=== PATIENT | female | born 1935 | race African-American/Black ===

== ENCOUNTER 2021-02-19 16:44 | Inpatient (IN) | payer MEDICARE, SELFPAY ==
[2021-02-19] VITALS (31 sets, daily range): BP systolic 119–174; BP diastolic 53–107; PULSE 77–97; RESP 13–30; TEMP 36.7–36.8; O2SAT 98–100; BMI 24.7
--- NOTE | ~2021-02-19 | CT_ITS ---
EXAMINATION: CT cervical spine wo con DATE: 02/19/2021 18:24 INDICATION: Head injury TECHNIQUE: Computed tomography (CT) of the cervical spine was performed without intravenous contrast. The dose-length product (DLP) was 193.13 mGy-cm. Automated exposure control and iterative reconstruc tion technique were employed. COMPARISON: None FINDINGS: There is no fracture, dislocation, or subluxation. The vertebral body heights are maintaine d. There is severe loss of intervertebral disc space height at C5-6 and moderate loss of intervertebr al disc space height at C4-5 and C6-7. The odontoid is intact. 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 There is enlargement of the right thyroid lobe which measures 5.0 x 4.1 cm. A 1.2 cm nodule is noted in the left thyroid lobe. IMPRESSION: 1. Severe cervical spondylosis without acute findings. 2. Enlarged right thyroid lobe. Recommend nonemergent thyroid ultrasound for risk stratification. Reviewed, dictated and finalized at location A. IMPRESSION: 1. Severe cervical spondylosis without acute findings. 2. Enlarged right thyroid lobe. Recommend nonemergent thyroid ultrasound for ri sk stratification.
--- NOTE | ~2021-02-19 | US_ITS ---
EXAMINATION: US thyroid EXAM DATE: 02/20/2021 15:28 INDICATION: thyroid enlargement. TECHNIQUE: Multiple grayscale and Doppler images of the thyroid were obtained (by a technologist who performed the scan) and subsequently reviewed. Individual nodules and recommendations may be reporte d in accordance with TI-RADS system as designated by the 2017 ACR White Paper TI-RADS committee. The re is no prior study for comparison. FINDINGS: Right thyroid lobe measures 4.3 x 5.5 x 4.2 cm, most of this volume taken up by a single nodule measu ring 4.9 x 3.8 x 3.9 cm which should be considered for ultrasound-guided FNA. Left thyroid lobe measu res 5.2 x 2.9 x 1.7 cm There are multiple other nodules bilaterally, largest on the left has multiple cystic regions and appearance most consistent with colloid cyst. IMPRESSION: 1. Multinodular goiter. 2. Recommend nonemergent biopsy of the 4.9 cm right thyroid lobe nodule. Reviewed, dictated and finalized at location A.
--- NOTE | ~2021-02-19 | XR_ITS ---
EXAMINATION: XR chest 1V portable INDICATION: Transient alteration of awareness TECHNIQUE: Portable AP chest at 1707 hours COMPARISON: 04/22/2016 FINDINGS: The lungs are free of acute opacities. There is no pleural effusion or pneumothorax. The ca rdiomediastinal silhouette is normal. IMPRESSION: 1. No acute cardiopulmonary abnormality. Reviewed, dictated and finalized at location A.
--- NOTE | ~2021-02-19 | CT_ITS ---
EXAMINATION: CT brain wo con INDICATION: Transient alteration of awareness COMPARISON: 01/04/2013 TECHNIQUE: Standard unenhanced head CT. The dose-length product (DLP) was 605.33 mGy-cm. The mA was a djusted according to patient size. Iterative reconstruction technique was employed. FINDINGS: There is no acute intraparenchymal hemorrhage. No evidence of mass lesion. No evidence of a cute infarction. There is mild periventricular and subcortical hypodensity probably related to small vessel ischemic disease. There is mild prominence of the sulci and ventricles related to cerebral atr ophy. Intracranial calcified cerebral atherosclerosis is noted. There are no extra-axial collections. There is no mass effect or midline shift. Changes in the globes are likely from ocular lens surgery. There is chronic opacification of the right mastoid air cells. IMPRESSION: 1. No acute intracranial abnormality. 2. Age related findings. Reviewed, dictated and finalized at location A.
--- NOTE | ~2021-02-19 | CT_ITS ---
EXAMINATION: CT brain wo con DATE: 02/22/2021 10:32 INDICATION: Leg weakness. TECHNIQUE: Computed tomography (CT) of the head was performed without intravenous contrast. The dose- length product was 605.33 mGy-cm. Automated exposure control and iterative reconstruction technique w ere employed. COMPARISON: CT dated 02/20/2020 FINDINGS: Generalized atrophy. There are scattered severe periventricular and subcortical white matte r changes, most likely related to small vessel ischemic disease (microangiopathy). No ventriculomegal y or midline shift. No acute intracranial hemorrhage, infarction, mass or mass effect. Basilar cister ns are patent. Paranasal sinuses and mastoids are pneumatized. No depressed skull fractures. IMPRESSION: 1. No acute intracranial abnormality. 2: Chronic age-related findings. Reviewed, dictated and finalized at location A.
--- NOTE | ~2021-02-19 | US_ITS ---
EXAMINATION: US abdomen limited DATE: 02/20/2021 15:28 INDICATION: Right upper quadrant pain TECHNIQUE: Multiple grayscale and Doppler ultrasound images of the abdomen were obtained. COMPARISON: None available FINDINGS: The head, body, and tail of the pancreas are normal. The liver is normal with normal echoge nicity and echotexture. No surface nodularity. Normal hepatopetal flow in the main portal vein. Stone s or sludge are present in the nondistended gallbladder. There is no gallbladder wall thickening or p ericholecystic fluid. The normal common bile duct measures 6 mm. There was no sonographic Silva sign . IMPRESSION: 1. Stones or sludge in the otherwise normal gallbladder. Reviewed, dictated and finalized at location A.
[2021-02-19 16:57] LABS: Glucose Point of Care 422 mg/dl (65-105)
[2021-02-19] MEDS: SODIUM CHLORIDE 0.9% IV 1,000 ML 999 ML IV CONT ×2 (17:03→18:39)
--- NOTE | 2021-02-19 17:14 | ED.GENADULT ---
HPI - General Adult General Chief complaint: Weakness Stated complaint: WEAKNESS Time Seen by Provider: 02/19/21 16:49 Source: RN notes reviewed History of Present Illness HPI narrative: Patient presents emergency department from home for weakness. The patient states that she lives at home by herself and she walks with both a cane and a walker she states that her daughter came over today and found the patient on the floor she states that she had fallen last night but unable to get herself at and laid on the floor all night patient states that she has been feeling more weak over the past day she denies any fevers or chills, chest pain shortness of breath abdominal pain nausea vomiting or any other symptoms denies any extremity pain or headache Related Data Home Medications Medication Instructions Recorded Confirmed Calcium-Vitamin D BID 02/19/21 02/19/21 amlodipine 02/19/21 atorvastatin 02/19/21 insulin detemir U-100 [Levemir 20 unit SUBCUT QAM 02/19/21 U-100 Insulin] lisinopril 02/19/21 timolol maleate drp DAILY 02/19/21 Allergies Allergy/AdvReac Type Severity Reaction Status Date / Time propoxyphene Allergy Mild Unknown Verified 02/19/21 17:03 Sulfa (Sulfonamide Allergy Mild VOMITING Verified 02/19/21 17:03 Antibiotics) Review of Systems Review of Systems: Gen.: Denies fevers or chills Eyes: Denies eye pain or visual change ENT: Denies congestion Respiratory: Denies shortness of breath or cough CV: Denies chest pain or palpitations GI: Denies abdominal pain nausea, emesis or diarrhea Musculoskeletal: Denies back pain or muscle pain Neuro: Reports weakness Skin: Denies rash Except as documented, all other systems reviewed and negative [facility] Past Medical History Medical History (Updated 02/19/21 @ 20:00 by Agustin Judge DO) Diabetes mellitus Family History Family History (Updated 12/19/15 @ 23:19 by DOCTOR UNKNOWN) Sibling Family history of diabetes mellitus in first degree relative Acute myocardial infarction Other Diabetes mellitus Family history of cardiovascular disease Hypertension Social History Social History Smoking status: Never smoker Alcohol intake: never Exam Narrative: APPEARANCE: No acute distress, nontoxic, resting in bed EYES: EOMI HEENT: Normocephalic, atraumatic, OMM RESPIRATORY: No respiratory distress Clear to auscultation bilaterally with no rhonchi wheezing or rales. CARDIOVASCULAR: Regular rate and rhythm without murmurs rubs or gallops. ABDOMINAL: Soft, nontender, nondistended, no rebound or guarding MUSCULOSKELETAl: Moves all extremities. No clubbing, cyanosis or edema. NEURO: Awake and alert x 4 Following commands, speech normal, no focal deficits SKIN:: Warm, dry. No rashes lesions or abrasions PSYCHIATRIC: Normal affect/mood, Course Course Emergency Course: Called discussed with Dr. De Los Santos presentation work-up agrees with admission at this time Discussed with patient and family results of workup and diagnosis. Discussed need for admission. Patient and family understand and agree to current treatment plan Vital Signs Vital signs: Vital Signs Temperature 98.2 F 02/19/21 16:55 Pulse Rate 93 02/19/21 16:55 Respiratory Rate 13 02/19/21 16:55 Blood Pressure 174/53 H 02/19/21 16:55 Pulse Oximetry 100 02/19/21 16:55 Temperature 98.2 F 02/19/21 16:55 Pulse Rate 93 02/19/21 20:01 Respiratory Rate 21 H 02/19/21 20:01 Blood Pressure 119/107 H 02/19/21 20:01 Pulse Oximetry 100 02/19/21 20:01 Medical Decision Making Vital Signs Vital Signs: Vital Signs Temperature 98.2 F 02/19/21 16:55 Pulse Rate 93 02/19/21 16:55 Respiratory Rate 13 02/19/21 16:55 Blood Pressure 174/53 H 02/19/21 16:55 Pulse Oximetry 100 02/19/21 16:55 Temperature 98.2 F 02/19/21 16:55 Pulse Rate 93 02/19/21 20:01 Respiratory Rate 21 H 02/19/21 20
[2021-02-19 17:37] LABS: Add Urine Microscopic? YES; Appearance Urine Cloudy (Clear); Bacteria Urine Trace /hpf; Bilirubin Urine Negative (Negative); Blood Urine 3+ (Negative); Color Urine Straw (Yellow); Glucose Urine UA 3+ mg/dL (Negative); Ketones Urine 1+ mg/dL (Negative); Leukocyte Esterase Ur 3+ LEU/UL (Negative); Mucus Urine Rare /lpf; Nitrate Urine Negative (Negative); Protein Urine 3+ mg/dL (Negative); Specific Grav Ur 1.022 (1.001-1.035); Squamous Epithelial Cell Urine Few /hpf (Few); Urobilinogen Urine Negative mg/dL (<2.0); WBC Urine >75 /hpf
--- NOTE | 2021-02-19 18:14 | PC.NURSE ---
pt off floor to CT scan
[2021-02-19 18:23] LABS: Basophils Percent Auto 0.2 % (0.2-1.2); Hematocrit 38.8 % (37.0-47.0); Immature Granulocyte Absolute 0.06 K/mm3 (0.00-0.031); Immature Granulocyte Percent A 0.4 % (0-0.5); Lymphocytes Absolute Auto 1.12 K/mm3 (0.9-3.2); Lymphocytes Percent Auto 7.9 % (18.3-44.2); Mean Corpuscular HGB Conc 30.9 g/dl (32-36); Mean Corpuscular Hemoglobin 26.8 pg (26-34); Mean Corpuscular Volume 86.8 fl (80-100); Mean Platelet Volume 10.8 fl (7.4-10.4); Neutrophils Absolute Auto 11.9 K/mm3 (1.3-6.7); Neutrophils Percent Auto 84.5 % (45.5-73.1); Platelet Count Result 276 k/mm3 (150-375); Red Blood Count 4.47 M/mm3 (4.2-5.4); Red Cell Distribution Width 14.5 % (11.5-14.5); White Blood Count 14.1 K/mm3 (4.5-10.0)
[2021-02-19 19:25] LABS: Alanine Aminotransferase 53 U/L (4-35); Albumin Level 3.8 g/dL (3.5-5.1); Alkaline Phosphatase 94 U/L (38-126); Anion Gap 13 mmol/L (8-16); Aspartate Amino Transferase 56 U/L (14-36); Bilirubin,Total 0.9 mg/dL (0.2-1.3); Blood Urea Nitrogen 20 mg/dL (7-17); Calcium 8.9 mg/dL (8.4-10.2); Carbon Dioxide 19 mmol/L (22-30); Chloride 106 mmol/L (98-107); Creatine Kinase 534 U/L (30-135); Estimated CRCL calculation 43 ml/min; Estimated Glomerular Filt Rate > 60; Glucose 406 mg/dL (65-110); Lipase 288 U/L (23-300); Potassium 3.6 mmol/L (3.4-5.0); Sodium 138 mmol/L (137-145)
[2021-02-19 19:27] LABS: INR 0.9; Prothrombin Time 12.5 Seconds (11.1-14.7)
[2021-02-19 19:28] LABS: Partial Thromboplastin Time 30.1 SECONDS (22.3-36.8)
[2021-02-19 19:40] LABS: Glucose Point of Care 364 mg/dl (65-105)
--- NOTE | 2021-02-19 20:17 | PM.IMHP ---
H&P: HPI History of Present Illness Date/Time: 02/19/21 20:17 Chief Complaint: Fall Narrative: This is an 85-year-old female with past medical history significant for hypertension, diabetes, glaucoma. Patient was brought today to the emergency room after she had been found down after she fell and was unable to get up on her own. Patient is unable to give much history she is slightly confused. Most of the history has been obtained from emergency room medical records and EMS records. Preliminary workup was significant for a urinalysis with significant wbc's present chemistry and complete blood come panel WBC of 14,000 and a creatinine kinase in the 500s. CT of the head with no acute intracranial abnormalities chest x-ray with no acute cardiopulmonary abnormality and a CT of cervical spine significant for severe cervical spondylosis. Decision has been made to admit the patient for further management evaluation and treatment. Review of Systems Review of Systems: ROS unobtainable: Yes unobtainable due to medical condition (Confused) [facility] Past Medical History Medical History (Updated 02/19/21 @ 20:00 by Agustin Judge DO) Diabetes mellitus Family History Family History (Updated 02/20/21 @ 00:17 by Juan Jose Trevino RN) Sibling Acute myocardial infarction Family history of diabetes mellitus in first degree relative Family history of cardiovascular disease Diabetes mellitus Hypertension Social History Social History Smoking status: Never smoker Alcohol intake: never Substance use: never Spiritual care concerns: No Meds Home Medications and Allergies Home Medications Medication Instructions Recorded Confirmed Type amlodipine 5 mg PO DAILY 02/19/21 02/20/21 History atorvastatin 10 mg PO DAILY 02/19/21 02/20/21 History insulin detemir U-100 [Levemir 20 unit SUBCUT QAM 02/19/21 02/20/21 History U-100 Insulin] lisinopril 40 mg PO DAILY 02/19/21 02/20/21 History timolol maleate 1 drp EACH EYE BID 02/19/21 02/20/21 History Allergies Allergy/AdvReac Type Severity Reaction Status Date / Time propoxyphene Allergy Mild Unknown Verified 02/19/21 17:03 Sulfa (Sulfonamide Allergy Mild VOMITING Verified 02/19/21 17:03 Antibiotics) Vital Signs Vital Signs - 24 hr 02/19/21 16:55 02/19/21 16:56 02/19/21 17:00 Temperature 98.2 F Pulse Rate 92 97 95 Respiratory Rate 18 15 17 Blood Pressure 174/53 H 174/53 H 155/59 H Pulse Oximetry 100 100 99 02/19/21 17:01 02/19/21 17:20 02/19/21 17:30 Temperature Pulse Rate 94 79 Respiratory Rate 22 H Blood Pressure Pulse Oximetry 99 02/19/21 18:00 02/19/21 18:25 02/19/21 18:42 Temperature Pulse Rate 83 88 81 Respiratory Rate 19 15 20 Blood Pressure Pulse Oximetry 100 100 02/19/21 18:45 02/19/21 19:00 02/19/21 19:15 Temperature Pulse Rate 82 94 86 Respiratory Rate 22 H 23 H 22 H Blood Pressure Pulse Oximetry 100 100 100 02/19/21 19:30 02/19/21 19:39 02/19/21 19:40 Temperature Pulse Rate 90 83 89 Respiratory Rate 24 H 18 24 H Blood Pressure 148/93 H Pulse Oximetry 100 100 100 02/19/21 19:45 02/19/21 19:46 02/19/21 20:00 Temperature Pulse Rate 88 84 82 Respiratory Rate 20 22 H 18 Blood Pressure 149/59 H Pulse Oximetry 100 100 100 02/19/21 20:01 Temperature Pulse Rate 93 Respiratory Rate 21 H Blood Pressure 119/107 H Pulse Oximetry 100 Exam Narrative: Laying in [facility] Const: General: cooperative, comfortable, no acute distress, well developed, alert and awake Nutritional Appearance: average body habitus Orientation/consciousness: oriented to person and confusion HENMT: Head: normal to inspection, normocephalic and atraumatic Ears: hearing grossly normal bilaterally Face and sinus: normal facial exam Eyes: General: appearance normal, both eyes and all related structures Alignment and Position: alignment normal
[2021-02-19 20:23] LABS: Glucose Point of Care 381 mg/dl (65-105)
[2021-02-19] MEDS: INSULIN ASPART (*BKC) 100 UNITS/ML 6 UNITS SUB-Q (20:27)
--- NOTE | 2021-02-19 20:39 | PC.NURSE ---
Called daughter Cherelle to report that patient will be admitted. Confirmed with Cherelle PMH and patient's medications
--- NOTE | 2021-02-19 20:45 | PC.NURSE ---
Called report to [facility]. Unable to accept patient until Lactic acid is draw. Phlebotomy called to draw lactic and blood cultures.
--- NOTE | 2021-02-19 20:59 | PC.NURSE ---
Phlebotomy at bedside drawing lactic and blood cultures
[2021-02-19 21:31] LABS: Lactic Acid Reflex 1.9 mmol/L (0.7-2.1)
--- NOTE | 2021-02-19 21:55 | PC.NURSE ---
Called rangel [facility], Lactic is 1.9. Floor accepting patient at this time
[2021-02-19 22:05] LABS: Glucose Point of Care 334 mg/dl (65-105)
--- NOTE | 2021-02-19 22:42 | ADMGEN ---
This patient, Blaze Douglas, was admitted to Medical Room 248-01. Patient/family oriented to hospital policies and general routines including ID bracelet, bed and alarms, visiting hours, pain management, procedures, bathroom and other care routines, personal items, smoking policy, room service/diet, and visiting hours. Information on how to activate the Rapid Response Team has been discussed. Patient/Family are encouraged to report perceived risks to care and to ask questions if they do not understand what they are told or what they should do.
[2021-02-19] MEDS: SODIUM CHLORIDE 0.9% IV 1,000 ML 80 ML IV CONT (23:54)
[2021-02-20 00:03] LABS: Glucose Point of Care 297 mg/dl (65-105)
[2021-02-20 04:48] LABS: Glucose Point of Care 321 mg/dl (65-105)
[2021-02-20 05:31] VITALS: BP 153/55; PULSE 87; RESP 16; TEMP 36.9; O2SAT 100
[2021-02-20 05:54] LABS: Basophils Percent Auto 0.2 % (0.2-1.2); Eosinophils Absolute Auto 0.2 K/mm3 (0-0.3); Eosinophils Percent Auto 1.9 % (0-4.4); Hematocrit 36.2 % (37.0-47.0); Hemoglobin 10.9 g/dL (12.0-15.0); Immature Granulocyte Absolute 0.07 K/mm3 (0.00-0.031); Immature Granulocyte Percent A 0.6 % (0-0.5); Lymphocytes Absolute Auto 1.84 K/mm3 (0.9-3.2); Lymphocytes Percent Auto 14.6 % (18.3-44.2); Mean Corpuscular HGB Conc 30.1 g/dl (32-36); Mean Corpuscular Hemoglobin 26.8 pg (26-34); Mean Corpuscular Volume 88.9 fl (80-100); Mean Platelet Volume 10.8 fl (7.4-10.4); Monocytes Absolute Auto 1.1 K/mm3 (0.1-0.6); Monocytes Percent Auto 8.7 % (2.6-8.5); Neutrophils Absolute Auto 9.3 K/mm3 (1.3-6.7); Platelet Count Result 251 k/mm3 (150-375); Red Blood Count 4.07 M/mm3 (4.2-5.4); Red Cell Distribution Width 14.6 % (11.5-14.5); White Blood Count 12.6 K/mm3 (4.5-10.0)
[2021-02-20 06:11] LABS: Alanine Aminotransferase 48 U/L (4-35); Albumin Level 3.6 g/dL (3.5-5.1); Alkaline Phosphatase 80 U/L (38-126); Anion Gap 15 mmol/L (8-16); Aspartate Amino Transferase 52 U/L (14-36); Bilirubin,Total 0.9 mg/dL (0.2-1.3); Blood Urea Nitrogen 23 mg/dL (7-17); Calcium 8.8 mg/dL (8.4-10.2); Carbon Dioxide 17 mmol/L (22-30); Chloride 108 mmol/L (98-107); Estimated CRCL calculation 37 ml/min; Estimated Glomerular Filt Rate > 60; Glucose 337 mg/dL (65-110); Potassium 4.1 mmol/L (3.4-5.0); Sodium 140 mmol/L (137-145)
[2021-02-20 07:03] LABS: Glucose Point of Care 321 mg/dl (65-105)
[2021-02-20] MEDS: amLODIPine BESYLATE 5 MG TABLET PO (08:20)
[2021-02-20] MEDS: lisinopriL 20 MG TABLET 40 MG PO (08:20)
[2021-02-20] MEDS: TIMOLOL MALEATE 0.5% OP SOLN 5 ML BOTTLE 1 DROP EACH EYE ×2 (08:20→17:31)
[2021-02-20] MEDS: INSULIN DETEMIR 100 UNITS/ML 20 UNITS SUB-Q (08:20)
[2021-02-20] MEDS: INSULIN ASPART (*BKC) 100 UNITS/ML SUB-Q ×3 (09:36→16:54)
--- NOTE | 2021-02-20 10:37 | PM.IMPN ---
Progress Note: A&P Assessment and Plan (1) Acute UTI: Code(s): N39.0 - Urinary tract infection, site not specified Status: Acute Assessment and Plan: UA suspicious for UTI and the patient does have complaints of frequency as well as leukocytosis -continue ceftriaxone and await cultures (2) Gait instability: Code(s): R26.81 - Unsteadiness on feet Status: Acute Assessment and Plan: She walks with a walker or cane as needed but fell due to not having either of the devices next to her bed -PT and OT ordered (3) Diabetes mellitus: Code(s): E11.9 - Type 2 diabetes mellitus without complications Status: Acute Assessment and Plan: Last glucose 321 -A1c 9.0 -she takes Levemir at home -will continue Levemir and add sliding scale insulin. -I see no home oral medications on her external med list. She would benefit from addition of oral medications at discharge to help control her blood glucose - I have called their PCP office and left a message with them to call me back about her DM tx plan (4) Fall: Code(s): W19.XXXA - Unspecified fall, initial encounter Status: Acute Assessment and Plan: As described above -cervical spine and CT of the brain without acute pathology -CK mildly elevated, will decrease fluids (5) Transaminitis: Code(s): R74.01 - Elevation of levels of liver transaminase levels Status: Acute Assessment and Plan: Mild, patient reports no history of alcohol abuse or liver disease -check hepatitis panel and liver ultrasound (6) Thyroid enlargement: Code(s): E04.9 - Nontoxic goiter, unspecified Status: Acute Assessment and Plan: Noted on cervical spine CT -will obtain thyroid ultrasound -check TSH Time Spent With Patient Time with patient: 25 - 35 minutes Subjective Date/time seen: 02/20/21 10:37 Interval history: Pt is a 85-year-old female here for UTI and fall. Patient was seen today and states she is doing well. She has some urinary frequency but no dysuria or abdominal pain. She states she remembers falling. She usually walks with a walker or cane but when she got out of bed the walker was not close to her bed so she tried to walk without a and she fell. She has no pain anywhere at this time. She denies chest pain, shortness of breath, fevers, chills, nausea or vomiting. She has no history of thyroid or liver abnormalities. Her last bowel movement was yesterday. Review of Systems Review of Systems: All systems reviewed & are unremarkable except as noted in HPI and below Exam Narrative: General: Well developed well nourished patient in NAD HEENT: normocephalic Neck: supple Neuro: Alert and oriented x4. Cranial nerves 2-12 intact. Equal strength the upper lower extremities 5/5 CV:RRR Resp: Slight Crackles to the bases bilaterally. No wheezing or rhonchi Abd: Soft, non distended. No pain to palpation. Positive bowel sounds Extremities: No swelling, erythema, or pain to palpation. Objective Data Vital Signs Vital Signs: Vital Signs - 24 hr 02/19/21 16:55 02/19/21 16:56 02/19/21 17:00 Temperature 98.2 F Pulse Rate 92 97 95 Respiratory Rate 18 15 17 Blood Pressure 174/53 H 174/53 H 155/59 H Pulse Oximetry 100 100 99 02/19/21 17:01 02/19/21 17:20 02/19/21 17:30 Temperature Pulse Rate 94 79 Respiratory Rate 22 H Blood Pressure Pulse Oximetry 99 02/19/21 18:00 02/19/21 18:25 02/19/21 18:42 Temperature Pulse Rate 83 88 81 Respiratory Rate 19 15 20 Blood Pressure Pulse Oximetry 100 100 02/19/21 18:45 02/19/21 19:00 02/19/21 19:15 Temperature Pulse Rate 82 94 86 Respiratory Rate 22 H 23 H 22 H Blood Pressure Pulse Oximetry 100 100 100 02/19/21 19:30 02/19/21 19:39 02/19/21 19:40 Temperature Pulse Rate 90 83 89 Respiratory Rate 24 H 18 24 H Blood Pressure 148/93 H Pulse Oximetry 100 100
[2021-02-20 11:59] LABS: Glucose Point of Care 315 mg/dl (65-105)
[2021-02-20] MEDS: SODIUM CHLORIDE 0.9% IV 1,000 ML 60 ML IV CONT (12:14)
[2021-02-20 14:00] VITALS: BP 169/50; PULSE 75; RESP 22; TEMP 37.1; O2SAT 99
[2021-02-20 16:54] LABS: Glucose Point of Care 319 mg/dl (65-105)
[2021-02-20 20:53] VITALS: BP 155/50; PULSE 69; RESP 18; TEMP 37.4; O2SAT 100
[2021-02-20 21:17] LABS: Glucose Point of Care 267 mg/dl (65-105)
[2021-02-20 22:00] VITALS: BP 166/49; PULSE 68; RESP 12; TEMP 36.7; O2SAT 100
[2021-02-21 05:35] LABS: Alanine Aminotransferase 76 U/L (4-35); Albumin Level 3.6 g/dL (3.5-5.1); Alkaline Phosphatase 82 U/L (38-126); Anion Gap 6 mmol/L (8-16); Aspartate Amino Transferase 84 U/L (14-36); Bilirubin,Total 0.7 mg/dL (0.2-1.3); Blood Urea Nitrogen 27 mg/dL (7-17); Calcium 8.6 mg/dL (8.4-10.2); Carbon Dioxide 24 mmol/L (22-30); Chloride 108 mmol/L (98-107); Creatine Kinase 611 U/L (30-135); Estimated CRCL calculation 48 ml/min; Estimated Glomerular Filt Rate > 60; Glucose 235 mg/dL (65-110); Hematocrit 34.1 % (37.0-47.0); Hemoglobin 10.6 g/dL (12.0-15.0); Mean Corpuscular HGB Conc 31.1 g/dl (32-36); Platelet Count Result 246 k/mm3 (150-375); Potassium 3.9 mmol/L (3.4-5.0); Red Blood Count 3.92 M/mm3 (4.2-5.4); Red Cell Distribution Width 14.7 % (11.5-14.5); Sodium 138 mmol/L (137-145); White Blood Count 11.2 K/mm3 (4.5-10.0)
[2021-02-21 05:49] VITALS: BP 162/56; PULSE 84; RESP 16; TEMP 36.8; O2SAT 99
[2021-02-21] MEDS: SODIUM CHLORIDE 0.9% IV 1,000 ML 60 ML IV CONT (06:19)
[2021-02-21 06:32] LABS: Thyroid Stimulating Hormone Reflex < 0.015 uIU/mL (0.465-4.68)
[2021-02-21 06:33] LABS: Hepatitis B Surface Antigen Negative (Negative)
[2021-02-21 06:39] LABS: HAV RESULT Negative (Negative); Hepatitis B Core IgM Result Negative (Negative)
[2021-02-21 06:51] LABS: Hepatitis C Virus Antibody Negative (Negative)
[2021-02-21 07:58] LABS: Glucose Point of Care 228 mg/dl (65-105)
[2021-02-21 08:07] LABS: Free T4 Free Thyroxine Reflex 3.62 ng/dL (0.78-2.19)
[2021-02-21] MEDS: INSULIN ASPART (*BKC) 100 UNITS/ML SUB-Q ×3 (08:15→16:35)
[2021-02-21] MEDS: INSULIN DETEMIR 100 UNITS/ML 20 UNITS SUB-Q (08:18)
[2021-02-21] MEDS: lisinopriL 20 MG TABLET 40 MG PO (08:27)
[2021-02-21] MEDS: amLODIPine BESYLATE 5 MG TABLET 10 MG PO (08:27)
[2021-02-21] MEDS: TIMOLOL MALEATE 0.5% OP SOLN 5 ML BOTTLE 1 DROP EACH EYE ×2 (08:27→16:37)
--- NOTE | 2021-02-21 10:17 | PM.IMPN ---
Progress Note: A&P Assessment and Plan (1) Acute UTI: Code(s): N39.0 - Urinary tract infection, site not specified Status: Acute Assessment and Plan: UA suspicious for UTI and the patient does have complaints of frequency as well as leukocytosis. Urine culture is growing multiple organisms but the UA does not show many squamous cells. For this reason I will continue antibiotics and I have asked lab to grow the culture. -continue ceftriaxone (2) Gait instability: Code(s): R26.81 - Unsteadiness on feet Status: Acute Assessment and Plan: She walks with a walker or cane as needed but fell due to not having either of the devices next to her bed -PT and OT ordered (3) Diabetes mellitus: Code(s): E11.9 - Type 2 diabetes mellitus without complications Status: Acute Assessment and Plan: Last glucose 228 -A1c 9.0 -she takes Levemir at home -will continue Levemir and add sliding scale insulin. -I see no home oral medications on her external med list. She would benefit from addition of oral medications at discharge to help control her blood glucose - I have called their PCP office and left a message 02/20 but did not receive a call back (4) Fall: Code(s): W19.XXXA - Unspecified fall, initial encounter Status: Acute Assessment and Plan: As described above -cervical spine and CT of the brain without acute pathology -no pain to her hips or extremities -CK increased a bit today, will increase fluids (5) Transaminitis: Code(s): R74.01 - Elevation of levels of liver transaminase levels Status: Acute Assessment and Plan: Mild, patient reports no history of alcohol abuse or liver disease -could be due to elevated CK -ultrasound without any acute abnormalities. No signs of choledocholithiasis on labs (6) 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 I spoke to the patient about this and she is going to follow up with her primary care physician (7) Hypertension: Code(s): I10 - Essential (primary) hypertension Status: Acute Assessment and Plan: Last blood pressure 162/56. Patient has been running high pretty consistently. -will increase Norvasc from 5 mg to 10 mg Subjective Date/time seen: 02/21/21 10:17 Interval history: Pt is a 85-year-old female here for UTI and fall. Patient was seen today and is doing well. She has no complaints. She is in absolutely no pain and denies chest pain, nausea, vomiting, fevers, chills, dysuria, abdominal pain, shortness of breath, or leg swelling. I spoke to her about her thyroid and liver ultrasounds. Exam Narrative: General: Well developed well nourished patient in NAD HEENT: normocephalic Neck: supple Neuro: Alert and oriented x4. Cranial nerves 2-12 intact. Equal strength the upper lower extremities 5/5 CV:RRR Resp: Slight Crackles to the bases bilaterally. No wheezing or rhonchi Abd: Soft, non distended. No pain to palpation. Positive bowel sounds Extremities: No swelling, erythema, or pain to palpation. Objective Data Vital Signs Vital Signs: Vital Signs - 24 hr 02/20/21 14:00 02/20/21 20:53 02/20/21 22:00 Temperature 98.7 F 99.4 F 98.1 F Pulse Rate 75 69 68 Respiratory Rate 22 H 18 12 Blood Pressure 169/50 H 155/50 H 166/49 H Pulse Oximetry 99 100 100 02/21/21 05:49 Temperature 98.3 F Pulse Rate 84 Respiratory Rate 16 Blood Pressure 162/56 H Pulse Oximetry 99 Intake/Output Intake/Output: Intake & Output 02/18/21 02/19/21 02/20/21 02/21/21 23:59 23:59 23:59 23:59 Intake Total 2049 1630 1000 Output Total 900 Balance 2049 730 1000 Meds/Results Medications: Active Medications Generic Name Dose Route Start Last Admin Trade Name Freq PRN Reason
[2021-02-21 12:04] LABS: Glucose Point of Care 294 mg/dl (65-105)
[2021-02-21 14:00] VITALS: BP 166/60; PULSE 98; RESP 16; TEMP 36.2; O2SAT 99
[2021-02-21 16:34] LABS: Glucose Point of Care 247 mg/dl (65-105)
[2021-02-21] MEDS: SODIUM CHLORIDE 0.9% IV 1,000 ML 80 ML IV CONT (20:17)
[2021-02-21 20:58] VITALS: BP 162/66; PULSE 86; RESP 18; TEMP 36.6; O2SAT 100
[2021-02-21 21:31] LABS: Glucose Point of Care 272 mg/dl (65-105)
[2021-02-22] VITALS (8 sets, daily range): BP systolic 146–172; BP diastolic 66–86; PULSE 69–100; RESP 16–20; TEMP 36.7–37.2; O2SAT 97–99
[2021-02-22 05:14] LABS: Hematocrit 34.9 % (37.0-47.0); Hemoglobin 11.2 g/dL (12.0-15.0); Mean Corpuscular HGB Conc 32.1 g/dl (32-36); Mean Corpuscular Hemoglobin 26.6 pg (26-34); Mean Corpuscular Volume 82.9 fl (80-100); Platelet Count Result 277 k/mm3 (150-375); Red Blood Count 4.21 M/mm3 (4.2-5.4); Red Cell Distribution Width 14.4 % (11.5-14.5); White Blood Count 10.3 K/mm3 (4.5-10.0)
[2021-02-22 05:34] LABS: Alanine Aminotransferase 65 U/L (4-35); Albumin Level 3.4 g/dL (3.5-5.1); Alkaline Phosphatase 101 U/L (38-126); Anion Gap 8 mmol/L (8-16); Aspartate Amino Transferase 56 U/L (14-36); Bilirubin,Total 0.7 mg/dL (0.2-1.3); Blood Urea Nitrogen 20 mg/dL (7-17); Calcium 8.5 mg/dL (8.4-10.2); Carbon Dioxide 24 mmol/L (22-30); Chloride 106 mmol/L (98-107); Creatine Kinase 349 U/L (30-135); Estimated CRCL calculation 48 ml/min; Estimated Glomerular Filt Rate > 60; Glucose 225 mg/dL (65-110); Potassium 3.6 mmol/L (3.4-5.0); Sodium 138 mmol/L (137-145)
--- NOTE | 2021-02-22 07:48 | ECG_ITS ---
Measurements Intervals [place] Rate: 101 P: [place]: 0 QRS: -32 QRSD: 113 T: 82 QT: 359 QTc: 466 Interpretive Statements ATRIAL FIBRILLATION WITH RAPID VENTRICULAR RESPONSE INCOMPLETE LEFT BUNDLE BRANCH BLOCK POOR R WAVE PROGRESSION, ANTERIOR LEADS INFERIOR INFARCT, AGE INDETERMINATE BORDERLINE ST-T WAVE ABNORMALITY- HIGH LATERAL LEADS ABNORMAL ECG Electronically Signed On 02-22-2021 9:05:52 CDT by Royer Stapleton D.O.
[2021-02-22] MEDS: SODIUM CHLORIDE 0.9% IV 1,000 ML 80 ML IV CONT (08:15)
[2021-02-22] MEDS: amLODIPine BESYLATE 5 MG TABLET 10 MG PO (08:16)
[2021-02-22] MEDS: TIMOLOL MALEATE 0.5% OP SOLN 5 ML BOTTLE 1 DROP EACH EYE ×2 (08:16→17:06)
[2021-02-22] MEDS: lisinopriL 20 MG TABLET 40 MG PO (08:16)
--- NOTE | 2021-02-22 08:18 | PM.IMPN ---
Progress Note: A&P Assessment and Plan (1) Acute UTI: Code(s): N39.0 - Urinary tract infection, site not specified Status: Acute Assessment and Plan: UA suspicious for UTI and the patient does have complaints of frequency as well as leukocytosis. Urine culture is growing multiple organisms but the UA does not show many squamous cells. For this reason I will continue antibiotics and I have asked lab to grow the culture. -continue ceftriaxone (2) Hyperthyroidism: Code(s): E05.90 - Thyrotoxicosis, unspecified without thyrotoxic crisis or storm Status: Acute Assessment and Plan: TSH noted to be low and T4 high -check T3 and thyrotropin receptor antibody -Start atenolol, check ekg -will likely need methimazole, thyroid uptake scan, and bx. -I have a call out to Dr. Field for recommendations (3) Gait instability: Code(s): R26.81 - Unsteadiness on feet Status: Acute Assessment and Plan: She was doing well with PT and OT but today she seems much weaker than yesterday and required 2 assistance to the bathroom and a sarasteady on the way back -continue PT/OT -check head CT (4) Diabetes mellitus: Code(s): E11.9 - Type 2 diabetes mellitus without complications Status: Acute Assessment and Plan: Last glucose 225 -A1c 9.0 -she takes Levemir at home -will continue Levemir and add sliding scale insulin. -I see no home oral medications on her external med list. She would benefit from addition of oral medications at discharge to help control her blood glucose - I have called their PCP office and left a message 02/20 but did not receive a call back (5) Fall: Code(s): W19.XXXA - Unspecified fall, initial encounter Status: Acute Assessment and Plan: As described above -cervical spine and CT of the brain without acute pathology -no pain to her hips or extremities -CK improving, stop IV fluids (6) Transaminitis: Code(s): R74.01 - Elevation of levels of liver transaminase levels Status: Acute Assessment and Plan: Mild, patient reports no history of alcohol abuse or liver disease -could be due to elevated CK -ultrasound without any acute abnormalities. 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 I spoke to the patient about this and she is going to follow up with her primary care physician (8) Hypertension: Code(s): I10 - Essential (primary) hypertension Status: Acute Assessment and Plan: Last blood pressure 160/86 Patient has been running high pretty consistently. -Norvasc increased from 5 mg to 10 mg -atenolol added Subjective Date/time seen: 02/22/21 08:18 Interval history: Pt is a 85-year-old female here for UTI, weakness and fall. Patient was seen today and not doing well. She says she feels much weaker today and does not feel like she is ready to go home. She has no pain at this time. She specifically denies chest pain, palpitations, shortness of breath, fevers, chills, nausea, vomiting, diarrhea, constipation or abdominal pain. She did say she had to go the bathroom and I walked her to the bathroom. During this time she looked much weaker than yesterday and needed much more assistance. While she was sitting on the toilet she kept leaning to the right. Exam Narrative: General: Well developed well nourished patient in NAD HEENT: normocephalic Neck: supple Neuro: Alert and oriented x4. Cranial nerves 2-12 intact. Equal strength the upper lower extremities 5/5. Leaning to the right while sitting. Gait normal CV: Appeared to be tachycardic on exam with slight irregularity. Check EKG Resp: Crackles to the bases, bilaterally. No wheezing or rhonchi Abd: So
[2021-02-22] MEDS: INSULIN DETEMIR 100 UNITS/ML 20 UNITS SUB-Q (08:22)
[2021-02-22 08:42] LABS: Glucose Point of Care 234 mg/dl (65-105)
[2021-02-22 08:52] LABS: Total Triiodothyronine (T3) 1.99 NG/ML (0.97-1.69)
[2021-02-22] MEDS: METOPROLOL TARTRATE 25 MG TABLET PO ×2 (09:26→21:50)
--- NOTE | 2021-02-22 10:18 | PCOTNOTE ---
Attempted to see patient at this time for skilled OT session. Patient being taken out of room for CT. Will attempt to see patient a second time. Will continue per POC.
[2021-02-22] MEDS: INSULIN ASPART (*BKC) 100 UNITS/ML SUB-Q (11:43)
[2021-02-22 12:04] LABS: Glucose Point of Care 299 mg/dl (65-105)
[2021-02-22] MEDS: ENOXAPARIN 60 MG/0.6 ML SYRINGE SUB-Q ×2 (13:02→21:52)
[2021-02-22 17:25] LABS: Glucose Point of Care 149 mg/dl (65-105)
[2021-02-22 22:07] LABS: Glucose Point of Care 207 mg/dl (65-105)
[2021-02-23] VITALS (11 sets, daily range): BP systolic 132–159; BP diastolic 53–87; PULSE 64–98; RESP 18; TEMP 36.6–36.8; O2SAT 94–100
--- NOTE | 2021-02-23 | ECHO_ITS ---
Patient Info Name: Blaze Douglas Age: 85 years : 1935 Gender: Female Ht: 62 in Wt: 135 lbs BSA: 1.65 m2 HR: 69 bpm BP: 159 / 87 mmHg Heart Rhythm: Atrial Fibrillation Technical Quality: Good Exam Date: 02/23/2021 10:54 AM Exam Location: [facility] Patient Status: Inpatient Admit Date: 02/23/2021 Staff Ordering Physician: Leny Galaviz PA-C Fur Repair Inspector: Lazara Patel RDCS Attending Provider: Leny Galaviz PA-C Referring Physician: Elena SOLORZANO Exam Type: CA echo doppler color flow Study Info Indications I48.1 - Persistent atrial fibrillation Complete two-dimensional, color flow and Doppler transthoracic echocardiogram is performed. Summary 1. Complete two-dimensional, color flow and Doppler transthoracic echocardiogram is performed. 2. Left ventricular chamber dimension is normal. 3. Left ventricular systolic function is normal, estimated at 60-65%. 4. There is mildly increased left ventricular wall thickness. 5. The left ventricular diastolic function is indeterminate. 6. Right ventricular chamber dimension is mildly enlarged. 7. Left atrial chamber dimension is mildly enlarged. 8. There is mild mitral valve regurgitation. 9. There is mild to moderate tricuspid valve regurgitation. 10. Moderate pulmonary hypertension, estimated pulmonary arterial systolic pressure is 48 mmHg. Left Ventricle Left ventricular chamber dimension is normal. Left ventricular systolic function is normal, estimated at 60-65%. There is mildly increased left ventricular wall thickness. The left ventricular diastolic function is indeterminate. Right Ventricle Right ventricular chamber dimension is mildly enlarged. Right ventricular systolic function is normal. Left Atria Left atrial chamber dimension is mildly enlarged. Right Atria Right atrial chamber dimension is normal. Atrial Septum Intact interatrial septum visualized by color flow imaging. Aortic Valve The aortic valve is trileaflet. There is mild aortic valve sclerosis. There is no aortic valve stenosis. There is trace aortic valve regurgitation. Pulmonic Valve The pulmonic valve is normal. There is no pulmonic valve stenosis. There is trace pulmonic regurgitation. Mitral Valve The mitral valve has thickened leaflets. There is no mitral valve stenosis. There is mild mitral valve regurgitation. Tricuspid Valve The tricuspid valve leaflets are normal. There is no significant tricuspid valve stenosis. There is mild to moderate tricuspid valve regurgitation. Moderate pulmonary hypertension, estimated pulmonary arterial systolic pressure is 48 mmHg. Pericardium/Pleural The pericardium appears normal. There is no pericardial effusion. Inferior Vena Cava Normal inferior vena cava with <50% collapse upon inspiration consistent with elevated right atrial pressure, 10 mmHg. Aorta The aortic root size at the sinus of Valsalva is normal. The prox ascending aorta size is normal. Left Ventricular Outflow Tract Name Value Normal LVOT 2D LVOT Diameter 1.8 cm LVOT Doppler LVOT Peak Gradient 5 m
[2021-02-23 06:42] LABS: Hematocrit 35.1 % (37.0-47.0); Hemoglobin 11.2 g/dL (12.0-15.0); Mean Corpuscular HGB Conc 31.9 g/dl (32-36); Mean Corpuscular Hemoglobin 26.7 pg (26-34); Mean Corpuscular Volume 83.8 fl (80-100); Mean Platelet Volume 11.3 fl (7.4-10.4); Platelet Count Result 266 k/mm3 (150-375); Red Blood Count 4.19 M/mm3 (4.2-5.4); Red Cell Distribution Width 14.3 % (11.5-14.5); White Blood Count 8.3 K/mm3 (4.5-10.0)
[2021-02-23 06:53] LABS: Alanine Aminotransferase 50 U/L (4-35); Alkaline Phosphatase 91 U/L (38-126); Anion Gap 4 mmol/L (8-16); Aspartate Amino Transferase 56 U/L (14-36); Bilirubin,Total 0.6 mg/dL (0.2-1.3); Blood Urea Nitrogen 21 mg/dL (7-17); Calcium 8.6 mg/dL (8.4-10.2); Carbon Dioxide 27 mmol/L (22-30); Chloride 103 mmol/L (98-107); Estimated CRCL calculation 48 ml/min; Estimated Glomerular Filt Rate > 60; Glucose 197 mg/dL (65-110); Potassium 3.3 mmol/L (3.4-5.0); Sodium 134 mmol/L (137-145)
[2021-02-23 07:25] LABS: Glucose Point of Care 185 mg/dl (65-105)
[2021-02-23] MEDS: TIMOLOL MALEATE 0.5% OP SOLN 5 ML BOTTLE 1 DROP EACH EYE ×2 (08:48→16:52)
[2021-02-23] MEDS: POTASSIUM CHLORIDE 20 MEQ TABLET 40 MEQ PO (08:48)
[2021-02-23] MEDS: METOPROLOL TARTRATE 25 MG TABLET PO ×2 (08:49→21:07)
[2021-02-23] MEDS: ENOXAPARIN 60 MG/0.6 ML SYRINGE SUB-Q (08:49)
[2021-02-23] MEDS: amLODIPine BESYLATE 5 MG TABLET 10 MG PO (08:49)
[2021-02-23] MEDS: lisinopriL 20 MG TABLET 40 MG PO (08:50)
[2021-02-23] MEDS: INSULIN DETEMIR 100 UNITS/ML 20 UNITS SUB-Q (08:50)
[2021-02-23] MEDS: methiMAzole 5 MG TAB PO (08:51)
[2021-02-23] MEDS: INSULIN ASPART (*BKC) 100 UNITS/ML SUB-Q (12:02)
[2021-02-23 12:23] LABS: Glucose Point of Care 220 mg/dl (65-105)
--- NOTE | 2021-02-23 14:05 | PM.IMPN ---
Progress Note: A&P Assessment and Plan (1) Acute UTI: Code(s): N39.0 - Urinary tract infection, site not specified Status: Acute Assessment and Plan: UA suspicious for UTI and the patient does have complaints of frequency as well as leukocytosis which is improving with antibiotics. Urine culture is growing multiple organisms but the UA does not show many squamous cells. For this reason I will continue antibiotics and I have asked lab to grow the culture. -continue ceftriaxone (2) Hyperthyroidism: Code(s): E05.90 - Thyrotoxicosis, unspecified without thyrotoxic crisis or storm Status: Acute Assessment and Plan: TSH noted to be low T4 and T3 high, consistent with hyperthyroidism - metoprolol and methimazole started. will need to monitor liver function test -will likely need thyroid uptake scan and bx. I spoke to the patient about this and she agrees (3) Gait instability: Code(s): R26.81 - Unsteadiness on feet Status: Acute Assessment and Plan: requiring assistance and continues to feel weak -continue PT/OT - care coordination getting authorization for SNF (4) Diabetes mellitus: Code(s): E11.9 - Type 2 diabetes mellitus without complications Status: Acute Assessment and Plan: Last -A1c 9.0 -she takes Levemir at home -will continue Levemir and add sliding scale insulin. -I see no home oral medications on her external med list. She would benefit from addition of oral medications at discharge to help control her blood glucose - I have called their PCP office and left a message 02/20 but did not receive a call back (5) Fall: Code(s): W19.XXXA - Unspecified fall, initial encounter Status: Acute Assessment and Plan: As described above -cervical spine and CT of the brain without acute pathology -no pain to her hips or extremities - check CK in the morning, this is trending down (6) Transaminitis: Code(s): R74.01 - Elevation of levels of liver transaminase levels Status: Acute Assessment and Plan: Mild, patient reports no history of alcohol abuse or liver disease -could be due to elevated CK -ultrasound without any acute abnormalities. 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 I spoke to the patient about this and she is going to follow up with her primary care physician (8) Hypertension: Code(s): I10 - Essential (primary) hypertension Status: Acute Assessment and Plan: Last blood pressure 159/87 -Norvasc increased from 5 mg to 10 mg and metoprolol added (9) New onset atrial fibrillation: Code(s): I48.91 - Unspecified atrial fibrillation Status: Acute Assessment and Plan: 02/22 patient was found to be in AFib RVR with no chest pain - metoprolol started, patient is now rate controlled - Lovenox will be transition to Xarelto. This will be 47 dollars a month and care coordination has spoken to the patient about this - echo done. Normal EF with mild to moderate tricuspid valve regurgitation -will need to follow up with cardiology outpt Subjective Date/time seen: 02/23/21 14:05 Interval history: Pt is a 85-year-old female here for UTI, weakness and fall. patient was seen today and states she feels better than yesterday but does not feel like she is at her baseline. She continues to be weak. she has no chest pain, shortness of breath, fevers, chills, nausea, vomiting, abdominal pain or leg swelling. I spoke with her about AFib, anticoagulation, and her thyroid abnormalities and answered all of her questions. Exam Narrative: General: Well developed well nourished patient i
[2021-02-23] MEDS: RIVAROXABAN 15 MG TABLET PO (16:52)
[2021-02-23 17:42] LABS: Glucose Point of Care 191 mg/dl (65-105)
[2021-02-23 21:22] LABS: Glucose Point of Care 257 mg/dl (65-105)
[2021-02-24] VITALS (11 sets, daily range): BP systolic 146–169; BP diastolic 50–75; PULSE 65–103; RESP 16–18; TEMP 36.7–36.9; O2SAT 98–100
[2021-02-24 06:19] LABS: Hematocrit 31.8 % (37.0-47.0); Hemoglobin 10.2 g/dL (12.0-15.0); Mean Corpuscular HGB Conc 32.1 g/dl (32-36); Mean Corpuscular Hemoglobin 26.5 pg (26-34); Mean Corpuscular Volume 82.6 fl (80-100); Mean Platelet Volume 11.2 fl (7.4-10.4); Platelet Count Result 271 k/mm3 (150-375); Red Blood Count 3.85 M/mm3 (4.2-5.4); Red Cell Distribution Width 13.9 % (11.5-14.5); White Blood Count 8.7 K/mm3 (4.5-10.0)
[2021-02-24 06:35] LABS: Alanine Aminotransferase 42 U/L (4-35); Albumin Level 2.9 g/dL (3.5-5.1); Alkaline Phosphatase 85 U/L (38-126); Anion Gap 3 mmol/L (8-16); Aspartate Amino Transferase 41 U/L (14-36); Bilirubin,Total 0.6 mg/dL (0.2-1.3); Blood Urea Nitrogen 19 mg/dL (7-17); Calcium 8.1 mg/dL (8.4-10.2); Carbon Dioxide 30 mmol/L (22-30); Chloride 102 mmol/L (98-107); Creatine Kinase 104 U/L (30-135); Estimated CRCL calculation 48 ml/min; Estimated Glomerular Filt Rate > 60; Glucose 122 mg/dL (65-110); Potassium 3.3 mmol/L (3.4-5.0); Sodium 135 mmol/L (137-145)
[2021-02-24 06:54] LABS: Glucose Point of Care 138 mg/dl (65-105)
[2021-02-24] MEDS: TIMOLOL MALEATE 0.5% OP SOLN 5 ML BOTTLE 1 DROP EACH EYE ×2 (08:28→16:59)
[2021-02-24] MEDS: methiMAzole 5 MG TAB PO (08:28)
[2021-02-24] MEDS: amLODIPine BESYLATE 5 MG TABLET 10 MG PO (08:28)
[2021-02-24] MEDS: lisinopriL 20 MG TABLET 40 MG PO (08:28)
[2021-02-24] MEDS: METOPROLOL TARTRATE 25 MG TABLET PO ×2 (08:29→20:45)
[2021-02-24] MEDS: INSULIN DETEMIR 100 UNITS/ML 20 UNITS SUB-Q (08:31)
--- NOTE | 2021-02-24 08:57 | PCPTNOTE ---
Attempted to see patient for PT at this time, however patient declined. Patient reported she ain't ready for therapy and she just got back in the bed with nursing. Will check back at a later time.
[2021-02-24] MEDS: SODIUM CHLORIDE 0.9% IV 500 ML 50 ML (10:32)
[2021-02-24] MEDS: INSULIN ASPART (*BKC) 100 UNITS/ML SUB-Q (11:46)
[2021-02-24 11:48] LABS: Glucose Point of Care 259 mg/dl (65-105)
[2021-02-24 16:30] LABS: Glucose Point of Care 139 mg/dl (65-105)
--- NOTE | 2021-02-24 16:33 | PM.IMPN ---
Progress Note: A&P Assessment and Plan (1) Acute UTI: Code(s): N39.0 - Urinary tract infection, site not specified Status: Acute Assessment and Plan: UA suspicious for UTI +frequency and leukocytosis, improving with antibiotics Urine culture-->Escherichia Coli Continue ceftriaxone (2) Hyperthyroidism: Code(s): E05.90 - Thyrotoxicosis, unspecified without thyrotoxic crisis or storm Status: Acute Assessment and Plan: TSH noted to be low T4 and T3 high, consistent with hyperthyroidism metoprolol and methimazole started will need to monitor liver function test will likely need thyroid uptake scan and bx (3) Gait instability: Code(s): R26.81 - Unsteadiness on feet Status: Acute Assessment and Plan: requiring assistance and continues to feel weak continue PT/OT care coordination getting authorization for SNF (4) Diabetes mellitus: Code(s): E11.9 - Type 2 diabetes mellitus without complications Status: Acute Assessment and Plan: A1c 9.0 continue Levemir and add sliding scale insulin. No home oral medications on her external med list. May benefit from addition of oral medications at discharge to help control her blood glucose Recommend follow up with PCP (5) Fall: Code(s): W19.XXXA - Unspecified fall, initial encounter Status: Acute Assessment and Plan: As described above cervical spine and CT of the brain without acute pathology CK wnl now (6) Transaminitis: Code(s): R74.01 - Elevation of levels of liver transaminase levels Status: Acute Assessment and Plan: Mild, patient reports no history of alcohol abuse or liver disease could be due to elevated CK ultrasound without any acute abnormalities No signs of choledocholithiasis on labs or exam monitor while on methimazole (7) 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 I spoke to the patient about this and she is going to follow up with her primary care physician (8) Hypertension: Code(s): I10 - Essential (primary) hypertension Status: Acute Assessment and Plan: Fluctuating Continue Norvasc at increased 10 mg Metoprolol added, continue Monitor (9) New onset atrial fibrillation: Code(s): I48.91 - Unspecified atrial fibrillation Status: Acute Assessment and Plan: 02/22 patient was found to be in AFib RVR with no chest pain Metoprolol started, patient is now rate controlled Lovenox will be transition to Xarelto. This will be 47 dollars a month and care coordination has spoken to the patient about this - echo done. Normal EF with mild to moderate tricuspid valve regurgitation -will need to follow up with cardiology o/p Subjective Date/time seen: 02/24/21 16:33 Interval history: pt seen and evaluated; labs, vs, and diagnostic reports reviewed; pt does not remember much about new dignosis and what is required at d/c; pt is still very weak Review of Systems Review of Systems: All systems reviewed & are unremarkable except as noted in HPI and below Exam Const: General: no acute distress, alert and awake Orientation/consciousness: patient oriented x3 HENMT: Head: normocephalic and atraumatic Ears: hearing grossly normal bilaterally and external ears normal Face and sinus: face symmetric Mouth: Yes Normal oral and palatal mucosa present Eyes: Pupils: Equal, round and reactive pupils present EOM: EOMs intact bilaterally Neck: Neck: full ROM, trachea midline and no JVD Thyroid: thyroid normal Resp: Effort & Inspection: normal respiratory effort Auscultation: clear to auscultation bilaterally Cardio: Jugular venous distension: no JVD Rhythm: abnormal rhythm Heart sounds: S1 normal heart sound present and S2 normal heart sound present GI: Inspection: normal to in
[2021-02-24] MEDS: RIVAROXABAN 15 MG TABLET PO (16:59)
[2021-02-24 21:12] LABS: Glucose Point of Care 128 mg/dl (65-105)
[2021-02-25] VITALS (9 sets, daily range): BP systolic 135–167; BP diastolic 46–78; PULSE 59–108; RESP 18–22; TEMP 36.3–36.8; O2SAT 98–100
[2021-02-25 05:50] LABS: Anion Gap 3 mmol/L (8-16); Blood Urea Nitrogen 17 mg/dL (7-17); Calcium 8.6 mg/dL (8.4-10.2); Carbon Dioxide 28 mmol/L (22-30); Chloride 103 mmol/L (98-107); Estimated CRCL calculation 56 ml/min; Estimated Glomerular Filt Rate > 60; Glucose 105 mg/dL (65-110); Potassium 3.7 mmol/L (3.4-5.0); Sodium 134 mmol/L (137-145)
[2021-02-25 08:03] LABS: Glucose Point of Care 123 mg/dl (65-105)
[2021-02-25] MEDS: amLODIPine BESYLATE 5 MG TABLET 10 MG PO (09:18)
[2021-02-25] MEDS: METOPROLOL TARTRATE 25 MG TABLET PO ×2 (09:18→20:12)
[2021-02-25] MEDS: INSULIN DETEMIR 100 UNITS/ML 20 UNITS SUB-Q (09:18)
[2021-02-25] MEDS: TIMOLOL MALEATE 0.5% OP SOLN 5 ML BOTTLE 1 DROP EACH EYE ×2 (09:19→17:03)
[2021-02-25] MEDS: methiMAzole 5 MG TAB PO (09:19)
[2021-02-25] MEDS: lisinopriL 20 MG TABLET 40 MG PO (09:19)
--- NOTE | 2021-02-25 11:38 | PCOTNOTE ---
Attempted to see Patient for A.M. treatment session at this time. Patient is having Physical Therapy at this time.
[2021-02-25 11:46] LABS: Glucose Point of Care 195 mg/dl (65-105)
--- NOTE | 2021-02-25 12:28 | PM.IMPN ---
Progress Note: A&P Assessment and Plan (1) Acute UTI: Code(s): N39.0 - Urinary tract infection, site not specified Status: Acute Assessment and Plan: UA suspicious for UTI +frequency and leukocytosis, improving with antibiotics Urine culture-->Escherichia Coli Continue ceftriaxone (2) Hyperthyroidism: Code(s): E05.90 - Thyrotoxicosis, unspecified without thyrotoxic crisis or storm Status: Acute Assessment and Plan: TSH noted to be low T4 and T3 high, consistent with hyperthyroidism metoprolol and methimazole started will need to monitor liver function test will likely need thyroid uptake scan and bx (3) Gait instability: Code(s): R26.81 - Unsteadiness on feet Status: Acute Assessment and Plan: requiring assistance and continues to feel weak continue PT/OT care coordination getting authorization for SNF (4) Diabetes mellitus: Code(s): E11.9 - Type 2 diabetes mellitus without complications Status: Acute Assessment and Plan: A1c 9.0 continue Levemir and add sliding scale insulin. No home oral medications on her external med list. May benefit from addition of oral medications at discharge to help control her blood glucose Recommend follow up with PCP (5) Fall: Code(s): W19.XXXA - Unspecified fall, initial encounter Status: Acute Assessment and Plan: As described above cervical spine and CT of the brain without acute pathology CK wnl now (6) Transaminitis: Code(s): R74.01 - Elevation of levels of liver transaminase levels Status: Acute Assessment and Plan: Mild, patient reports no history of alcohol abuse or liver disease could be due to elevated CK ultrasound without any acute abnormalities No signs of choledocholithiasis on labs or exam monitor while on methimazole (7) 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 I spoke to the patient about this and she is going to follow up with her primary care physician (8) Hypertension: Code(s): I10 - Essential (primary) hypertension Status: Acute Assessment and Plan: Fluctuating Continue Norvasc at increased 10 mg Metoprolol added, continue Monitor (9) New onset atrial fibrillation: Code(s): I48.91 - Unspecified atrial fibrillation Status: Acute Assessment and Plan: 02/22 patient was found to be in AFib RVR with no chest pain Metoprolol started, patient is now rate controlled Lovenox will be transition to Xarelto. This will be 47 dollars a month and care coordination has spoken to the patient about this - echo done. Normal EF with mild to moderate tricuspid valve regurgitation -will need to follow up with cardiology o/p Additional Plan Plan for d/c to swing bed tomorrow Subjective Date/time seen: 02/25/21 12:28 Interval history: 02/24 pt seen and evaluated; labs, vs, and diagnostic reports reviewed; pt does not remember much about new diagnosis and what is required at d/c; pt is still very weak 02/25 pt seen and evaluated; up to chair having lunch; denies any pain; looks better today, still weak Review of Systems Review of Systems: All systems reviewed & are unremarkable except as noted in HPI and below Exam Const: General: no acute distress, alert and awake Orientation/consciousness: patient oriented x3 HENMT: Head: normocephalic and atraumatic Ears: hearing grossly normal bilaterally and external ears normal Face and sinus: face symmetric Mouth: Yes Normal oral and palatal mucosa present Eyes: Pupils: Equal, round and reactive pupils present EOM: EOMs intact bilaterally Neck: Neck: full ROM, trachea midline and no JVD Resp: Effort & Inspection: normal respiratory effort Auscultation: clear to auscultation bilaterally Cardio: Jugular venous distension: no
[2021-02-25 16:29] LABS: Glucose Point of Care 189 mg/dl (65-105)
[2021-02-25] MEDS: RIVAROXABAN 15 MG TABLET PO (17:03)
[2021-02-25 21:06] LABS: Glucose Point of Care 253 mg/dl (65-105)
[2021-02-26] VITALS: PULSE 61
[2021-02-26 04:00] VITALS: PULSE 68
[2021-02-26 04:01] VITALS: BP 174/50; PULSE 70; RESP 22; TEMP 36.6; O2SAT 99
[2021-02-26 05:57] LABS: Alanine Aminotransferase 35 U/L (4-35); Alkaline Phosphatase 87 U/L (38-126); Anion Gap 4 mmol/L (8-16); Aspartate Amino Transferase 36 U/L (14-36); Bilirubin,Total 0.6 mg/dL (0.2-1.3); Blood Urea Nitrogen 19 mg/dL (7-17); Calcium 8.4 mg/dL (8.4-10.2); Carbon Dioxide 28 mmol/L (22-30); Chloride 102 mmol/L (98-107); Estimated CRCL calculation 48 ml/min; Estimated Glomerular Filt Rate > 60; Glucose 104 mg/dL (65-110); Potassium 3.8 mmol/L (3.4-5.0); Sodium 134 mmol/L (137-145)
[2021-02-26 07:48] LABS: Glucose Point of Care 130 mg/dl (65-105)
[2021-02-26 08:00] VITALS: PULSE 82
[2021-02-26] MEDS: lisinopriL 20 MG TABLET 40 MG PO (08:05)
[2021-02-26] MEDS: amLODIPine BESYLATE 5 MG TABLET 10 MG PO (08:06)
[2021-02-26] MEDS: methiMAzole 5 MG TAB PO (08:06)
[2021-02-26] MEDS: METOPROLOL TARTRATE 25 MG TABLET PO (08:06)
[2021-02-26] MEDS: TIMOLOL MALEATE 0.5% OP SOLN 5 ML BOTTLE 1 DROP EACH EYE ×2 (08:06→16:28)
[2021-02-26] MEDS: INSULIN DETEMIR 100 UNITS/ML 20 UNITS SUB-Q (08:06)
[2021-02-26 09:05] LABS: Thyrotropin Receptor Antibody <1.00 IU/L (<=2.00)
--- NOTE | 2021-02-26 09:24 | PM.DS ---
DS: Admitting Diagnosis Discharge Date 02/26/2021 Admitting Diagnosis Acute UTI DS: Summary Hospital Course Hospital Course: This is an 85-year-old female with past medical history significant for hypertension, diabetes, glaucoma. Patient was brought today to the emergency room after she had been found down after she fell and was unable to get up on her own. Patient is unable to give much history she is slightly confused. Most of the history has been obtained from emergency room medical records and EMS records. Preliminary workup was significant for a urinalysis with significant wbc's present chemistry and complete blood come panel WBC of 14,000 and a creatinine kinase in the 500s. CT of the head with no acute intracranial abnormalities chest x-ray with no acute cardiopulmonary abnormality and a CT of cervical spine significant for severe cervical spondylosis. Decision has been made to admit the patient for further management evaluation and treatment. She was treated empirically for UTI with IV Ceftriaxone. Urine culture grew Escherichia Coli; Coag negative Staphylococcus and Enterococcus species. She will complete 3 days of oral antibiotics. She was diagnosed with Hyperthyroidism and metoprolol and methimazole were initiated. She willl likely need thyroid uptake scan and biopsy outpatient. During her stay she has been weak with gait instability. She will discharge to inpatient rehab for therapy. She has been advised to follow up with her PCP within 2 weeks. Time Spent with Patient Time attestation: Total time spent providing and/or coordinating discharge services: Time spent: Greater than 30 minutes DS: Data Data Completed and Pending Labs on day of discharge: Labs from last 24 hours 02/26/21 02/26/21 02/25/21 07:45 05:05 20:15 Sodium 134 L Potassium 3.8 Chloride 102 Carbon Dioxide 28 Anion Gap 4 L BUN 19 H Creatinine 0.60 L Estim Creat Clear Calc 48 Estimated GFR > 60 Glucose 104 POC Capillary Glucose 130 H 253 H Calcium 8.4 Total Bilirubin 0.6 AST 36 ALT 35 Alkaline Phosphatase 87 Total Protein 6.0 L Albumin 3.0 L TSH Receptor Ab 02/25/21 02/25/21 02/22/21 16:19 11:35 08:57 Sodium Potassium Chloride Carbon Dioxide Anion Gap BUN Creatinine Estim Creat Clear Calc Estimated GFR Glucose POC Capillary Glucose 189 H 195 H Calcium Total Bilirubin AST ALT Alkaline Phosphatase Total Protein Albumin TSH Receptor Ab <1.00 Discharge Plan Discharge Attending physician on discharge: La Ugarte Consulting providers: Glenn Milton ; Timothy Skinner ; Jody Mccartney ; Damian Fournier ; Donaldo Acevedo ; Royer Stapleton Discharging Clinician: Naz Fong Patient Disposition: Inpatient Rehab Facility Activity: as tolerated Diet: heart healthy Discharge Instructions: AFib -will need to follow up with cardiology o/p Hyperthyroidism/Thyroid enlargement: -ultrasound of the thyroid recommended FNA Patient Instructions: Antibiotic Form, Rivaroxaban (By mouth), A-fib (Atrial Fibrillation) (DC), Urinary Tract Infection in Women (DC), Hyperthyroidism (DC), Graves Disease (DC) Stand Alone Forms: General Discharge Information Discharge Medications: New methimazole [Tapazole] 10 mg Tablet 5 mg PO QAM Qty: 30 RF: 0 metoprolol tartrate 25 mg Tablet 25 mg PO Q12HR Qty: 60 RF: 0 nitrofurantoin monohyd/m-cryst [Macrobid] 100 mg Capsule 100 mg PO Q12HR Qty: 6 RF: 0 Xarelto 15 mg Tablet 15 mg PO DAILY@1700 Qty: 30 RF: 0 Continued atorvastatin 10 mg tablet 40 mg PO DAILY RF: 0 amlodipine 5 mg tablet 5 mg PO DAILY RF: 0 timolol maleate 0.5 % drops 1 drp EACH EYE BID RF: 0 lisinopril 40 mg tablet 40 mg PO DAILY RF: 0 Levemir U-100 Insulin 100 unit/mL Solution 20 unit SUBCUT QAM RF: 0 Date of admission:
[2021-02-26 11:43] LABS: Glucose Point of Care 188 mg/dl (65-105)
[2021-02-26 12:00] VITALS: PULSE 60
[2021-02-26 14:06] VITALS: BP 150/52; PULSE 79; RESP 18; TEMP 36.7; O2SAT 100
[2021-02-26] MEDS: RIVAROXABAN 15 MG TABLET PO (16:28)
[2021-02-26 16:46] LABS: Glucose Point of Care 193 mg/dl (65-105)
== END 2021-02-26 18:20 | disposition swing bed (61) | DRG 690 ==
LOC: ANHED 20:00 → ANH2MED 20:06
PROVIDERS: Physician Assistant; Admitting Provider Internal Medicine; Emergency Provider Emergency Medicine; PCP Internal Medicine; Visit Provider Nurse Practitioner Adult Health
DX: N39.0 Urinary tract infection, site not specified (principal); B96.20 Unspecified Escherichia coli [E. coli] as the cause of diseases classified elsewhere; B95.7 Other staphylococcus as the cause of diseases classified elsewhere; B95.2 Enterococcus as the cause of diseases classified elsewhere; E05.90 Thyrotoxicosis, unspecified without thyrotoxic crisis or storm; Z28.21 Immunization not carried out because of patient refusal; I48.91 Unspecified atrial fibrillation; E11.65 Type 2 diabetes mellitus with hyperglycemia; I10 Essential (primary) hypertension; H40.9 Unspecified glaucoma; E87.6 Hypokalemia; R74.01 Elevation of levels of liver transaminase levels; M47.812 Spondylosis without myelopathy or radiculopathy, cervical region; R26.81 Unsteadiness on feet; W19.XXXA Unspecified fall, initial encounter; Z79.4 Long term (current) use of insulin; Z79.899 Other long term (current) drug therapy
CPT/HCPCS: 36415; 70450; 71045; 72125; 76536; 76705; 80048; 80053; 80074; 80076; 81001; 82550; 82948; 83036; 83519; 83605; 83690; 84439; 84443; 84480; 85025; 85027; 85610; 85730; 87040; 87077; 87086; 87088; 87186; 93005; 93306; 96361; 96365; 96366; 96372; 97110; 97161; 97165; 97530; 97535; 99285; A9270; G0378; J0696; J1650; J1815; J3480; J7030; J7040

== ENCOUNTER 2021-02-26 18:52 | Inpatient (IN) | payer MEDICARE, SELFPAY ==
[2021-02-26 19:30] VITALS: O2SAT 97
[2021-02-26 20:09] VITALS: BMI 24.7
--- NOTE | 2021-02-26 20:11 | PC.NURSE ---
Marvel admitted to room 4 per w/c from [facility]. Denies pain, is alert adn oriented, denies medical histyory, oriented to room and call light.
[2021-02-26 20:29] LABS: Glucose Point of Care 246 mg/dl (65-105)
[2021-02-26 21:17] VITALS: PULSE 66
[2021-02-26] MEDS: NITROFURANTOIN MONOHYD MACROCR 100 MG CAP PO (21:17)
[2021-02-26] MEDS: METOPROLOL TARTRATE 25 MG TABLET PO (21:17)
[2021-02-27] VITALS: BP 166/59; PULSE 62; RESP 20; TEMP 36; O2SAT 100
--- NOTE | 2021-02-27 06:39 | WPDREHABHP2 ---
HPI Date/Time 02/27/21 06:39 Narrative The patient's primary rehab impairment category is [] The etiologic diagnosis is [ Weakness with gait instability history of UTI treated [facility] was given ceftriaxone currently on some nitrofurantoin. Patient had history of atrial fibrillation with RVR is currently on Xarelto rate is controlled, with history of diabetes on Levemir and hyperthyroidism requiring the thigh muscle.] I saw this patient [id number] on [] The patient is a [ 85-year-old female with history of weakness gait instability treated for UTI at [facility]] Therapy was initiated at the acute care facility and the patient transferred to us from [[facility]] on [] PRIOR LEVEL OF FUNCTION: [] CURRENT LEVEL OF FUNCTION: [] GOALS: Our therapists will evaluate the patient and establish the goals. However, upon pre-admission screening, the expected goals were to be [INDEPENDENT] with self-care, [INDEPENDENT] with transfers, and [INDEPENDENT] with functional mobility so that the patient can return home. ESTIMATED LENGTH OF STAY: [10-14 days] POTENTIAL BARRIERS TO DISCHARGE: [Patient lives alone.] [Family needs training.] [Severity of condition.] [Architectural barriers.] ACTIVE CO-MORBIDITIES PRESENT ON ADMISSION: Active co-morbidities include []. The above co-morbidities impact the patient's function and/or functional outcome by [] Covid The patient had a negative COVID test on []. Review of Systems Review of Systems All systems reviewed & are unremarkable except as noted in HPI and below PMFSH Past Medical History Medical History Diabetes mellitus Hypertension Family History Family History Sibling Acute myocardial infarction Family history of diabetes mellitus in first degree relative Family history of cardiovascular disease Diabetes mellitus Hypertension Social History Social History Smoking status: Never smoker Second hand tobacco smoke exposure: No Alcohol intake: never Substance use: never Spiritual care concerns: No Meds Home Medications and Allergies Home Medications Medication Instructions Recorded Confirmed Type Levemir U-100 Insulin 20 unit SUBCUT QAM 02/19/21 02/26/21 History amlodipine 5 mg PO DAILY 02/19/21 02/26/21 History atorvastatin 40 mg PO DAILY 02/19/21 02/26/21 History lisinopril 40 mg PO DAILY 02/19/21 02/26/21 History timolol maleate 1 drp EACH EYE BID 02/19/21 02/26/21 History methimazole [Tapazole] 5 mg PO QAM #30 tablet 02/26/21 02/26/21 Rx metoprolol tartrate 25 mg PO Q12HR #60 tablet 02/26/21 02/26/21 Rx nitrofurantoin monohyd/m-cryst 100 mg PO Q12HR #6 cap 02/26/21 02/26/21 Rx [Macrobid] rivaroxaban [Xarelto] 15 mg PO DAILY@1700 #30 tablet 02/26/21 02/26/21 Rx Allergies Allergy/AdvReac Type Severity Reaction Status Date / Time propoxyphene Allergy Mild Unknown Verified 02/20/21 06:00 Sulfa (Sulfonamide AdvReac Mild VOMITING Verified 02/24/21 08:44 Antibiotics) Vital Signs Vital Signs - 24 hr 02/26/21 21:17 02/27/21 00:00 Temperature 36.0 C L Pulse Rate 66 62 Respiratory Rate 20 Blood Pressure 166/59 H Pulse Oximetry 100 Exam Const General: comfortable and no acute distress Eyes General: appearance normal, both eyes and all related structures Neck Neck: no JVD Cardio Rate: regular rate Rhythm: abnormal rhythm GI GI Palp: Yes Soft to palpation External Female Exam: normal external appearance Skin General skin exam: normal color and no rashes or lesions noted Neuro Speech: normal speech Extrem General: normal to inspection and normal exam except as noted Psych Mental Status: mental status grossly normal Rehab Assessment and Plan Additional Plan patient with a history of a UTI treated with ceftriaxo
--- NOTE | 2021-02-27 07:11 | P.PN_ITS ---
Progress Note: A&P Assessment and Plan (1) New onset atrial fibrillation: Code(s): I48.91 - Unspecified atrial fibrillation <Nikki JjFREDERIC Haynes - Last Filed: 02/27/21 07:28> Status: Acute <Trevinphuc Tio FREDERIC Douglas - Last Filed: 02/27/21 07:28> Assessment and Plan: * Controlled * Believed to be secondary to hyperthyroidism * Continue metoprolol 25 mg every 12 hours and Xarelto <FREDERIC Farfan - Last Filed: 02/27/21 07:28> (2) Hyperthyroidism: Code(s): E05.90 - Thyrotoxicosis, unspecified without thyrotoxic crisis or storm <FREDERIC Farfan - Last Filed: 02/27/21 07:28> Status: Acute <Nikki JjFREDERIC Haynes - Last Filed: 02/27/21 07:28> Assessment and Plan: * Thyroid test consistent with hyperthyroidism * Continue tapazole * Previous provider spoke with patient ultrasound of the thyroid recommended FNA. she is going to follow up with her primary care physician <FREDERIC Farfan - Last Filed: 02/27/21 07:28> (3) Hypertension: Code(s): I10 - Essential (primary) hypertension <FREDERIC Farfan - Last Filed: 02/27/21 07:28> Status: Acute <FREDERIC Farfan - Last Filed: 02/27/21 07:28> Assessment and Plan: * Blood pressure stable * Continue amlodipine 5 mg daily and lisinopril 40 mg daily <FREDERIC Farfan - Last Filed: 02/27/21 07:28> (4) Fall: Code(s): W19.XXXA - Unspecified fall, initial encounter <FREDERIC Farfan - Last Filed: 02/27/21 07:28> Status: Acute <FREDERIC Farfan - Last Filed: 02/27/21 07:28> Assessment and Plan: * Continue PT OT <FREDERIC Farfan - Last Filed: 02/27/21 07:28> (5) Acute UTI: Code(s): N39.0 - Urinary tract infection, site not specified <CEDRIC FarfanP-C - Last Filed: 02/27/21 07:28> Status: Acute <CEDRIC FarfanP-C - Last Filed: 02/27/21 07:28> Assessment and Plan: * Blood culture with the growth of E. coli * Continue Macrobid <KISHAN Farfan-C - Last Filed: 02/27/21 07:28> (6) Gait instability: Code(s): R26.81 - Unsteadiness on feet <Nikki Douglas MARKETING PROJECT LEAD-C - Last Filed: 02/27/21 07:28> Status: Acute <KISHAN Farfan-C - Last Filed: 02/27/21 07:28> Assessment and Plan: * Continue PT OT <KISHAN Farfan-C - Last Filed: 02/27/21 07:28> (7) Diabetes mellitus: Code(s): E11.9 - Type 2 diabetes mellitus without complications <CEDRIC FarfanP-C - Last Filed: 02/27/21 07:28> Status: Acute <KISHAN Farfan-C - Last Filed: 02/27/21 07:28> Assessment and Plan: * Last A1c 9 * Patient will follow up with her primary care physician to discuss use of oral medication * Continue home medication along with sliding scale hypoglycemic protocol and Accu-Cheks * Continue diabetic diet <Nikki Douglas KISHAN-C - Last Filed: 02/27/21 07:28> (8) Weakness: Code(s): R53.1 - Weakness <Nikki Douglas MARKETING PROJECT LEAD-C - Last Filed: 02/27/21 07:28> Status: Acute <Nikki Douglas KISHAN-C - Last Filed: 02/27/21 07:28> Assessment and Plan: ? Exhibit tolerance during physical activity as evidenced by a normal fluctuation of vital signs during physical activity. ? Patient will be ability to perform required activities of daily living. ? Provide appropriate nutrition for healing and strength. ? Use appropriate to prevent falls. ? Continue physical therapy/occupational therapy. <Son
--- NOTE | 2021-02-27 07:11 | WPDPN ---
Progress Note: A&P Assessment and Plan (1) New onset atrial fibrillation: Code(s): I48.91 - Unspecified atrial fibrillation <Nikki JjFREDERIC Haynes - Last Filed: 02/27/21 07:28> Status: Acute <Nikki Kinsey FREDERIC Douglas - Last Filed: 02/27/21 07:28> Assessment and Plan: Controlled Believed to be secondary to hyperthyroidism Continue metoprolol 25 mg every 12 hours and Xarelto <FREDERIC Farfan - Last Filed: 02/27/21 07:28> (2) Hyperthyroidism: Code(s): E05.90 - Thyrotoxicosis, unspecified without thyrotoxic crisis or storm <FREDERIC Farfan - Last Filed: 02/27/21 07:28> Status: Acute <Nikki JjFREDERIC Haynes - Last Filed: 02/27/21 07:28> Assessment and Plan: Thyroid test consistent with hyperthyroidism Continue tapazole Previous provider spoke with patient ultrasound of the thyroid recommended FNA. she is going to follow up with her primary care physician <FREDERIC Farfan - Last Filed: 02/27/21 07:28> (3) Hypertension: Code(s): I10 - Essential (primary) hypertension <FREDERIC Farfan - Last Filed: 02/27/21 07:28> Status: Acute <Nikki JjFREDERIC Haynes - Last Filed: 02/27/21 07:28> Assessment and Plan: Blood pressure stable Continue amlodipine 5 mg daily and lisinopril 40 mg daily <FREDERIC Farfan - Last Filed: 02/27/21 07:28> (4) Fall: Code(s): W19.XXXA - Unspecified fall, initial encounter <FREDERIC Farfan - Last Filed: 02/27/21 07:28> Status: Acute <FREDERIC Farfan - Last Filed: 02/27/21 07:28> Assessment and Plan: Continue PT OT <FREDERIC Farfan - Last Filed: 02/27/21 07:28> (5) Acute UTI: Code(s): N39.0 - Urinary tract infection, site not specified <Nikki Douglas DATA CAPTURE CLERK-C - Last Filed: 02/27/21 07:28> Status: Acute <Nikki Douglas KISHAN-C - Last Filed: 02/27/21 07:28> Assessment and Plan: Blood culture with the growth of E. coli Continue Macrobid <Nikki Douglas DATA CAPTURE CLERK-C - Last Filed: 02/27/21 07:28> (6) Gait instability: Code(s): R26.81 - Unsteadiness on feet <Nikki Douglas DATA CAPTURE CLERK-C - Last Filed: 02/27/21 07:28> Status: Acute <Nikki Douglas KISHAN-C - Last Filed: 02/27/21 07:28> Assessment and Plan: Continue PT OT <Nikki Douglas DATA CAPTURE CLERK-C - Last Filed: 02/27/21 07:28> (7) Diabetes mellitus: Code(s): E11.9 - Type 2 diabetes mellitus without complications <Nikki Douglas DATA CAPTURE CLERK-C - Last Filed: 02/27/21 07:28> Status: Acute <Nikki Douglas DATA CAPTURE CLERK-C - Last Filed: 02/27/21 07:28> Assessment and Plan: Last A1c 9 Patient will follow up with her primary care physician to discuss use of oral medication Continue home medication along with sliding scale hypoglycemic protocol and Accu-Cheks Continue diabetic diet <Nikki Douglas DATA CAPTURE CLERK-C - Last Filed: 02/27/21 07:28> (8) Weakness: Code(s): R53.1 - Weakness <Nikki Douglas DATA CAPTURE CLERK-C - Last Filed: 02/27/21 07:28> Status: Acute <Nikki Douglas DATA CAPTURE CLERK-C - Last Filed: 02/27/21 07:28> Assessment and Plan: ? Exhibit tolerance during physical activity as evidenced by a normal fluctuation of vital signs during physical activity. ? Patient will be ability to perform required activities of daily living. ? Provide appropriate nutrition for healing and strength. ? Use appropriate to prevent falls. ? Continue physical therapy/occupational therapy. <Nikki GardnerKristi Douglas DATA CAPTURE CLERK-C - Last Filed: 02/27/21 07:28> Subjective Date/time seen: 02/27/21 07:11 this is a 85-year-old female that presented to [facility] status post fall and confusion on 02/19/2021. Patient has a past medical history of hypertension, diabetes, glaucoma. Patient was found to have a urinary tract infection culture indicated the growth of
--- NOTE | 2021-02-27 07:12 | PC.NURSE ---
Patient rounding completed. Patient is sleeping in bed and call light within reach.
[2021-02-27 08:00] VITALS: BP 147/50; PULSE 65; RESP 19; TEMP 37.1; O2SAT 97
--- NOTE | 2021-02-27 08:10 | PC.NURSE ---
Patient rounding completed. Patient was laying in bed and sleepy. She was cooperative and pleasant for moving her up in bed. Call light within reach.
[2021-02-27] MEDS: ATORVASTATIN 40 MG TABLET PO (08:41)
[2021-02-27] MEDS: amLODIPine BESYLATE 5 MG TABLET PO (08:41)
[2021-02-27] MEDS: DOCUSATE SODIUM 100 MG CAPSULE PO ×2 (08:41→20:30)
[2021-02-27] MEDS: lisinopriL 20 MG TABLET 40 MG PO (08:42)
[2021-02-27] MEDS: methiMAzole 10 MG TAB 5 MG PO (08:45)
[2021-02-27] MEDS: TIMOLOL MALEATE 0.5% OP SOLN 5 ML BOTTLE 1 DROP EACH EYE ×2 (08:45→17:02)
[2021-02-27 08:46] VITALS: PULSE 65
[2021-02-27] MEDS: METOPROLOL TARTRATE 25 MG TABLET PO ×2 (08:46→20:30)
[2021-02-27] MEDS: NITROFURANTOIN MONOHYD MACROCR 100 MG CAP PO ×2 (08:46→20:30)
[2021-02-27] MEDS: INSULIN DETEMIR 100 UNITS/ML 20 UNITS SUB-Q (08:54)
--- NOTE | 2021-02-27 09:19 | PC.NURSE ---
Patient rounding completed. Patient is laying in bed with call light within reach. Patient does seem fatigued, but is cooperative with assessment questions.
--- NOTE | 2021-02-27 10:37 | PC.NURSE ---
Patient rounding completed. Blaze was sitting upright in chair with feet elevated. Patient is currently sleeping in the chair with call light with in reach.
--- NOTE | 2021-02-27 11:11 | PC.NURSE ---
Patient rounding completed. Patient sleeping in bed with call light within reach and bed in lowest position.
[2021-02-27 11:22] LABS: Glucose Point of Care 290 mg/dl (65-105)
--- NOTE | 2021-02-27 12:21 | PC.NURSE ---
Patient rounding completed. Patient is in chair finishing lunch. Call light within reach.
--- NOTE | 2021-02-27 12:46 | PC.NURSE ---
Patient rounding completed. Lunch complete. Remains in chair at bedside Call light in reach and working.
--- NOTE | 2021-02-27 13:04 | PC.NURSE ---
Patient returned to bed from chair. Call light within reach. Patient requested her lights and TV turned off for some quiet time. Patient was cooperative and in a pleasant mood for transfer.
--- NOTE | 2021-02-27 14:05 | PC.NURSE ---
Patient rounding completed. Patient is currently sleeping in bed with call light within reach.
--- NOTE | 2021-02-27 14:28 | PC.NURSE ---
Patient round complete. Patient abed eyes closed,respirations even nonlabored. Call light noted in reach bilateral upper side rails up.
[2021-02-27 16:00] VITALS: BP 154/64; PULSE 53; RESP 16; TEMP 36.6; O2SAT 99
[2021-02-27 16:35] LABS: Glucose Point of Care 72 mg/dl (65-105)
[2021-02-27] MEDS: RIVAROXABAN 10 MG TABLET 15 MG PO (17:03)
[2021-02-27 20:30] VITALS: PULSE 58
[2021-02-27 21:55] LABS: Glucose Point of Care 259 mg/dl (65-105)
[2021-02-28] VITALS: BP 170/59; PULSE 54; RESP 20; TEMP 36.6; O2SAT 95
[2021-02-28 07:43] LABS: Glucose Point of Care 156 mg/dl (65-105)
--- NOTE | 2021-02-28 07:45 | PC.NURSE ---
Patient assisted up to bedside commode with gaitbelt and walker x1 assist. tolerated well with noted weakness. Transfer into chair for breakfast Call light in reach, warm blanket provided upon request. Respirations even nonlabored with no complaints at this time.
[2021-02-28 08:00] VITALS: BP 132/72; PULSE 66; RESP 18; TEMP 36.4; O2SAT 95
[2021-02-28] MEDS: methiMAzole 10 MG TAB 5 MG PO (08:47)
[2021-02-28] MEDS: ATORVASTATIN 40 MG TABLET PO (08:47)
[2021-02-28] MEDS: TIMOLOL MALEATE 0.5% OP SOLN 5 ML BOTTLE 1 DROP EACH EYE ×2 (08:47→18:31)
[2021-02-28 08:48] VITALS: PULSE 74
[2021-02-28] MEDS: DOCUSATE SODIUM 100 MG CAPSULE PO ×2 (08:48→21:05)
[2021-02-28] MEDS: METOPROLOL TARTRATE 25 MG TABLET PO (08:48)
[2021-02-28] MEDS: NITROFURANTOIN MONOHYD MACROCR 100 MG CAP PO ×2 (08:48→21:09)
[2021-02-28] MEDS: lisinopriL 20 MG TABLET 40 MG PO (08:48)
[2021-02-28] MEDS: amLODIPine BESYLATE 5 MG TABLET PO (08:48)
[2021-02-28] MEDS: INSULIN DETEMIR 100 UNITS/ML 20 UNITS SUB-Q (09:07)
--- NOTE | 2021-02-28 11:02 | PC.NURSE ---
Patient assisted x1 back to bed, use of walker and gaitbelt. Tolerated fairly, remains weak but doing fair.
[2021-02-28 11:45] LABS: Glucose Point of Care 292 mg/dl (65-105)
--- NOTE | 2021-02-28 12:27 | PC.NURSE ---
Patient requested to stay abed for meal. HOB elevated. Lunch set up via staff. Insulin given Lispr for blood sugar 292 / 4 units Lispro left outer upper arm. Call light in reach. No complaints or questions at this time.
[2021-02-28] MEDS: BENZONATATE 100 MG CAPSULE 200 MG PO ×2 (13:23→16:37)
--- NOTE | 2021-02-28 14:01 | PC.NURSE ---
Patient resting abed eyes closed,respirations even nonlabored call light in reach at patients side.
[2021-02-28 16:00] VITALS: BP 128/78; PULSE 80; RESP 20; TEMP 36.6; O2SAT 96
[2021-02-28 16:46] LABS: Glucose Point of Care 68 mg/dl (65-105)
[2021-02-28] MEDS: RIVAROXABAN 10 MG TABLET 15 MG PO (18:35)
--- NOTE | 2021-02-28 19:00 | PC.NURSE ---
Completed bedside change of shift report. Patient is resting comfortably in bed, with no signs of pain or discomfort. Patient asked for a heated blanket, which was placed next to her skin, and covered with the rest of her blankets. Patient stated she was not in any pain, and did not need anything at this time. Day shift nurse stated that patient had a productive day. She was up for each meal, and participated in therapy. Patient has complained of being cold on occasion.
[2021-02-28] MEDS: guaiFENesin 12 HR 600 MG TABCR PO (21:05)
[2021-02-28 21:10] VITALS: PULSE 57
[2021-02-28 21:36] LABS: Glucose Point of Care 217 mg/dl (65-105)
--- NOTE | 2021-02-28 22:00 | PC.NURSE ---
Patient rounding completed. Patient is resting comfortably in bed, with no signs of pain or discomfort. Patient asked for the lights to be turned out, as she is getting ready to go to sleep. She did not have any other needs.
[2021-03-01] VITALS (7 sets, daily range): BP systolic 130–164; BP diastolic 50–75; PULSE 56–64; RESP 16–20; TEMP 36.4–37.4; O2SAT 96–99
[2021-03-01 07:54] LABS: Glucose Point of Care 157 mg/dl (65-105)
--- NOTE | 2021-03-01 08:29 | PC.NURSE ---
patient rounding complete. Assisted up to BBC, then chair assist x1 with gaitbelt and walker. Tolerated well. Call light and phone in reach. No complaints VS WNL Blood sugar 157
[2021-03-01] MEDS: BENZONATATE 100 MG CAPSULE 200 MG PO ×3 (09:02→16:59)
[2021-03-01] MEDS: TIMOLOL MALEATE 0.5% OP SOLN 5 ML BOTTLE 1 DROP EACH EYE (09:02)
[2021-03-01] MEDS: DOCUSATE SODIUM 100 MG CAPSULE PO ×2 (09:03→21:13)
[2021-03-01] MEDS: lisinopriL 20 MG TABLET 40 MG PO (09:03)
[2021-03-01] MEDS: guaiFENesin 12 HR 600 MG TABCR PO ×2 (09:03→21:13)
[2021-03-01] MEDS: NITROFURANTOIN MONOHYD MACROCR 100 MG CAP PO ×2 (09:03→21:13)
[2021-03-01] MEDS: ATORVASTATIN 40 MG TABLET PO (09:03)
[2021-03-01] MEDS: METOPROLOL TARTRATE 25 MG TABLET PO ×2 (09:03→21:13)
[2021-03-01] MEDS: amLODIPine BESYLATE 5 MG TABLET PO (09:04)
[2021-03-01] MEDS: INSULIN DETEMIR 100 UNITS/ML 20 UNITS SUB-Q (09:04)
--- NOTE | 2021-03-01 10:02 | PC.NURSE ---
Patient rounding complete. Moans with expression of pain note3d. Pain medication given p.o. Oxycodone 10mg. every 12 hours.repositioned onto right side. Call light in reach
[2021-03-01] MEDS: methiMAzole 10 MG TAB 5 MG PO (12:08)
--- NOTE | 2021-03-01 14:09 | PC.NURSE ---
Patient round completed assisted from chair to bedside commode and back abed. med b.m. brown soft with flatus. Call light in reach upper side rails up.
--- NOTE | 2021-03-01 17:00 | PC.NURSE ---
Eye drops were administered not noted on JUL.
[2021-03-01] MEDS: RIVAROXABAN 10 MG TABLET 15 MG PO (17:09)
[2021-03-01 20:56] LABS: Glucose Point of Care 222 mg/dl (65-105)
--- NOTE | 2021-03-01 23:22 | PC.NURSE ---
report to [address]
[2021-03-02] VITALS: BP 164/57; PULSE 56; RESP 16; TEMP 36.8; O2SAT 99
--- NOTE | 2021-03-02 07:18 | PC.NURSE ---
Patient rounding completed. Patient sleeping in bed with call light within reach.
--- NOTE | 2021-03-02 07:47 | PC.NURSE ---
Patient ambulated to the bathroom to void with walker, gait belt, and 1 assist. Patient ambulated very well and ambulated to her chair. Call light, phone, and water within reach.
[2021-03-02 08:00] VITALS: BP 148/40; PULSE 63; RESP 17; TEMP 36.6; O2SAT 99
[2021-03-02] MEDS: DOCUSATE SODIUM 100 MG CAPSULE PO ×2 (08:59→20:54)
[2021-03-02] MEDS: BENZONATATE 100 MG CAPSULE 200 MG PO ×3 (08:59→17:54)
[2021-03-02 09:00] VITALS: PULSE 63
[2021-03-02] MEDS: ATORVASTATIN 40 MG TABLET PO (09:00)
[2021-03-02] MEDS: guaiFENesin 12 HR 600 MG TABCR PO ×2 (09:00→20:54)
[2021-03-02] MEDS: amLODIPine BESYLATE 5 MG TABLET PO (09:00)
[2021-03-02] MEDS: NITROFURANTOIN MONOHYD MACROCR 100 MG CAP PO ×2 (09:00→20:54)
[2021-03-02] MEDS: METOPROLOL TARTRATE 25 MG TABLET PO (09:00)
[2021-03-02] MEDS: lisinopriL 20 MG TABLET 40 MG PO (09:00)
[2021-03-02] MEDS: TIMOLOL MALEATE 0.5% OP SOLN 5 ML BOTTLE 1 DROP EACH EYE ×2 (09:12→17:54)
[2021-03-02] MEDS: methiMAzole 10 MG TAB 5 MG PO (09:12)
[2021-03-02] MEDS: INSULIN DETEMIR 100 UNITS/ML 20 UNITS SUB-Q (09:14)
--- NOTE | 2021-03-02 10:14 | PC.NURSE ---
Patient rounding completed. Patient is sleeping in bed with call light within reach.
--- NOTE | 2021-03-02 11:40 | PC.NURSE ---
Patient rounding completed. Patient had finished ambulating hallway and to chair with assistance with PT and is now sitting in chair with feet reclined. Call light within reach of patient.
--- NOTE | 2021-03-02 12:20 | PC.NURSE ---
Patient rounding completed. Patient is sitting in her chair currently eating lunch.
--- NOTE | 2021-03-02 13:21 | PC.NURSE ---
Patient is sitting in chair. This internal communications writer brought 2 warm blankets per patient request. Patient is in pleasant mood with call light, phone, and fresh water within reach.
--- NOTE | 2021-03-02 14:08 | PC.NURSE ---
Patient is currently resting in bed with bed in lowest position. Call light and phone within reach of patient.
[2021-03-02 16:00] VITALS: BP 179/53; PULSE 56; RESP 16; TEMP 36.6; O2SAT 99
[2021-03-02] MEDS: RIVAROXABAN 10 MG TABLET 15 MG PO (17:55)
--- NOTE | 2021-03-02 19:00 | PC.NURSE ---
Completed bedside change of shift report and updated board. Patient is sleeping comfortably with no signs of pain or discomfort.
--- NOTE | 2021-03-02 21:00 | PC.NURSE ---
Medications are due at 2100 - including metoprolol, 25 mg. Patient's heart rate was 53 when first captured, and went up to 56. Metoprolol was not given, due to low heart rate. Patient's heart rate and blood pressure will be monitored this evening.
[2021-03-02 21:06] LABS: Glucose Point of Care 185 mg/dl (65-105)
[2021-03-02 21:10] VITALS: PULSE 56
--- NOTE | 2021-03-02 22:00 | PC.NURSE ---
completed patient rounding. Patient is sleeping comfortably in bed, with no signs of pain or discomfort.
[2021-03-03] VITALS: BP 181/56; PULSE 51; RESP 20; TEMP 36.4; O2SAT 98
[2021-03-03] MEDS: ACETAMINOPHEN 325 MG TABLET 650 MG PO (00:23)
--- NOTE | 2021-03-03 00:30 | PC.NURSE ---
Patient's heart rate was 51 and blood pressure was 181/56. Dr. Maria was contacted, and he will be ordering clonidine 0.2 mg for a one time dose.
[2021-03-03] MEDS: cloNIDine HCL 0.2 MG TABLET PO (01:29)
[2021-03-03 04:00] VITALS: BP 118/47; PULSE 43; RESP 18; TEMP 36.1; O2SAT 97
--- NOTE | 2021-03-03 07:37 | PC.NURSE ---
Patient rounding completed. Patient is sitting in the chair with her feet elevated. Feet are supported with a pillow underneath and covered with a warm blanket. Patient stated she did not sleep well the night before, but was cooperative with her blood glucose stick. Call light and phone within reach.
[2021-03-03 07:49] VITALS: BP 103/42; PULSE 43; RESP 16; TEMP 36.4; O2SAT 98
[2021-03-03] MEDS: DOCUSATE SODIUM 100 MG CAPSULE PO ×2 (08:51→20:56)
[2021-03-03] MEDS: ATORVASTATIN 40 MG TABLET PO (08:51)
[2021-03-03] MEDS: NITROFURANTOIN MONOHYD MACROCR 100 MG CAP PO ×2 (08:51→20:56)
[2021-03-03] MEDS: guaiFENesin 12 HR 600 MG TABCR PO ×2 (08:51→20:56)
[2021-03-03] MEDS: TIMOLOL MALEATE 0.5% OP SOLN 5 ML BOTTLE 1 DROP EACH EYE ×2 (08:51→17:05)
[2021-03-03] MEDS: methiMAzole 10 MG TAB 5 MG PO (08:51)
[2021-03-03] MEDS: BENZONATATE 100 MG CAPSULE 200 MG PO ×3 (08:51→17:06)
--- NOTE | 2021-03-03 09:24 | PC.NURSE ---
Patient rounding completed. Patient is sitting in her chair napping with call light within reach. Patient was cooperative with medication administration. Patient does seem a bit sleepy, but answers all questions with appropriate responses.
[2021-03-03 10:05] LABS: Glucose Point of Care 328 mg/dl (65-105)
[2021-03-03 10:06] LABS: Glucose Point of Care 74 mg/dl (65-105)
--- NOTE | 2021-03-03 10:07 | PC.NURSE ---
Patient rounding completed. Patient is laying in bed on her left side. Call light and phone within reach of patient. Bed alarm is on for patient safety.
--- NOTE | 2021-03-03 11:07 | PC.NURSE ---
Patient rounding completed. Patient is currently laying in her bed with her call light within reach. Assistance was provided to help her readjust her feet. Patient stated she was in no pain and was comfortable.
--- NOTE | 2021-03-03 12:07 | PC.NURSE ---
Patient rounding completed. Patient ambulated to her chair to eat lunch. Patient has call light and phone within reach.
--- NOTE | 2021-03-03 13:09 | PC.NURSE ---
Patient rounding completed. Patient is sitting in her chair currently talking with PT and her daughter. Call light is within reach of the patient.
--- NOTE | 2021-03-03 13:55 | PC.NURSE ---
Blaze ambulated from the bathroom after having a bm back to bed with a walker, gait belt, and 1 assist. She performed well. Patient lifted her own feet up in bed and adjusted herself with fair performance. Blaze has her call light and phone within reach as well with her bed alarm on and bed in lowest position for patient safety.
--- NOTE | 2021-03-03 14:25 | PC.NURSE ---
Patient rounding completed. Patient is sleeping in bed with call light and freshwater within reach.
--- NOTE | 2021-03-03 14:53 | PC.NURSE ---
Eye drops administered missed on JUL.
--- NOTE | 2021-03-03 15:14 | PC.NURSE ---
PT here c pt and walking in hallway c gait belt assist and use of walker, pt tolerated well.
[2021-03-03 15:48] LABS: Glucose Point of Care 128 mg/dl (65-105)
[2021-03-03 15:48] LABS: Glucose Point of Care 169 mg/dl (65-105)
[2021-03-03 15:49] LABS: Glucose Point of Care 152 mg/dl (65-105)
[2021-03-03 16:00] VITALS: BP 150/50; PULSE 51; RESP 18; TEMP 36.2; O2SAT 100
[2021-03-03 16:42] LABS: Glucose Point of Care 170 mg/dl (65-105)
[2021-03-03] MEDS: RIVAROXABAN 10 MG TABLET 15 MG PO (17:06)
--- NOTE | 2021-03-03 17:30 | PC.NURSE ---
Pt sitting in chair watching TV, dinner complete. Pt has no c/o at this time, call [facility] in reach.
--- NOTE | 2021-03-03 18:15 | PC.NURSE ---
Assisted pt back to bed and positioned. TV on c call [facility] at side.
--- NOTE | 2021-03-03 19:14 | PC.NURSE ---
Bedside change of shift report completed. Patient is resting comfortably in bed, with no signs of pain or discomfort. Patient reports that she is not in any pain at this time, and does not need anything. Dayshift nurse reported that patient had walked in the hallways today with PT, and was up in chair for every meal. She is now walking to the bathroom with gaitbelt and walker every time, and is no longer using the commode. Patient's hear rate has been between 50 to 55 today, and her BP has been a little soft. Both areas will be monitored.
[2021-03-03 20:56] VITALS: PULSE 49
--- NOTE | 2021-03-03 21:00 | PCDIET ---
Patient's heart rate was assessed during medication pass at 2100. Patient's heart rate was 49, so her metoprolol was held. Patient's heart rate and blood pressure will be monitored Q4.
[2021-03-03 21:23] LABS: Glucose Point of Care 224 mg/dl (65-105)
--- NOTE | 2021-03-03 22:22 | PC.NURSE ---
Completed patient rounding. Patient needed to use the toilet. She used the walker and a gait belt, and did a very good job of walking to the bathroom and back. She needed minimal assistance to get her legs back in the bed, but was able to get the legs out of bed independently. Patient stated she was not in any pain, and did not need anything else at this time.
--- NOTE | 2021-03-03 23:00 | PC.NURSE ---
Completed patient rounding. Patient is sleeping comfortably in bed, with no signs of pain or discomfort.
[2021-03-04] VITALS: BP 168/57; PULSE 54; RESP 18; TEMP 36.4; O2SAT 99
--- NOTE | 2021-03-04 02:15 | PC.NURSE ---
Patient rounding completed. Patient is sleeping comfortably in bed, with no signs of pain or discomfort.
--- NOTE | 2021-03-04 04:15 | PC.NURSE ---
Patient rounding completed. Patient stated that she needed to use the toilet. Patient was able to get her legs out of bed independently, walked using the walker to the bathroom and back, and was able to get her legs back into bed independently. Patient stated that she was not having any pain, and did not need anything else at this time.
--- NOTE | 2021-03-04 05:10 | PC.NURSE ---
Patient rounding completed. Patient is resting comfortably in bed, with no signs of pain or discomfort. Patient stated that she did not need anything at this time.
[2021-03-04 05:16] LABS: Basophils Absolute Auto 0.05 K/mm3 (0.00-0.10); Basophils Percent Auto 0.6 % (0.0-1.0); Eosinophils Absolute Auto 0.06 K/mm3 (0.02-0.50); Eosinophils Percent Auto 0.7 % (1.0-6.0); Hematocrit 31.1 % (35.0-42.0); Hemoglobin 9.8 g/dL (11.7-13.8); Immature Granulocyte Absolute 0.05 K/mm3 (0.00-0.00); Immature Granulocyte Percent A 0.6 % (0.0-0.0); Lymphocytes Percent Auto 33.5 % (18.0-42.0); Mean Corpuscular HGB Conc 31.5 g/dL (32.0-36.0); Mean Corpuscular Hemoglobin 25.9 pg (27.0-31.0); Mean Corpuscular Volume 82.3 fL (78.0-102.0); Mean Platelet Volume 9.7 fl (9.2-11.8); Monocytes Absolute Auto 0.63 K/mm3 (0.10-0.90); Monocytes Percent Auto 7.5 % (2.0-11.0); Neutrophils Absolute Auto 4.8 K/mm3 (1.7-7.2); Neutrophils Percent Auto 57.1 % (50.0-70.0); Platelet Count Result 480 K/mm3 (150-420); Red Blood Count 3.78 M/mm3 (4.20-5.40); Red Cell Distribution Width 13.9 % (11.6-14.4); White Blood Count 8.4 K/mm3 (4.8-10.8)
[2021-03-04 05:33] LABS: Alanine Aminotransferase 31 U/L (14-59); Albumin Level 2.3 g/dL (3.4-5.0); Alkaline Phosphatase 81 U/L (46-116); Anion Gap 7 mmol/L (8-16); Aspartate Amino Transferase 20 U/L (15-37); Bilirubin,Total 0.7 mg/dL (0.00-1.00); Blood Urea Nitrogen 23 mg/dL (7-18); Calcium 8.4 mg/dL (8.5-10.1); Carbon Dioxide 29 mmol/L (21-32); Chloride 102 mmol/L (98-108); Estimated CRCL calculation 35 ml/min; Estimated Glomerular Filt Rate > 60; Glucose 199 mg/dL (70-99); Osmolality Calculated 295 mOsm/kg (285-295); Sodium 138 mmol/L (136-145); Total Protein 5.8 g/dL (6.4-8.2)
--- NOTE | 2021-03-04 07:32 | PC.NURSE ---
Needed assist to get to sitting position in bed, able to get up from edge of bed unassisted, ambulatory with SBA, use of gait belt and walker to bathroom, advised to call when done and will assist to chair for breakfast
[2021-03-04 07:59] LABS: Glucose Point of Care 234 mg/dl (65-105)
[2021-03-04 08:00] VITALS: BP 170/50; PULSE 58; RESP 16; TEMP 36.5; O2SAT 97
[2021-03-04] MEDS: INSULIN DETEMIR 100 UNITS/ML 20 UNITS SUB-Q (08:40)
[2021-03-04] MEDS: methiMAzole 10 MG TAB 5 MG PO (08:41)
[2021-03-04] MEDS: lisinopriL 20 MG TABLET 40 MG PO (08:41)
[2021-03-04] MEDS: BENZONATATE 100 MG CAPSULE 200 MG PO ×3 (08:41→17:28)
[2021-03-04] MEDS: DOCUSATE SODIUM 100 MG CAPSULE PO ×2 (08:41→20:30)
[2021-03-04] MEDS: guaiFENesin 12 HR 600 MG TABCR PO ×2 (08:41→20:31)
[2021-03-04 08:42] VITALS: PULSE 58
[2021-03-04] MEDS: TIMOLOL MALEATE 0.5% OP SOLN 5 ML BOTTLE 1 DROP EACH EYE ×2 (08:42→17:27)
[2021-03-04] MEDS: NITROFURANTOIN MONOHYD MACROCR 100 MG CAP PO ×2 (08:42→20:31)
[2021-03-04] MEDS: METOPROLOL TARTRATE 25 MG TABLET PO (08:42)
[2021-03-04] MEDS: ATORVASTATIN 40 MG TABLET PO (08:42)
[2021-03-04] MEDS: amLODIPine BESYLATE 5 MG TABLET PO (08:42)
--- NOTE | 2021-03-04 09:22 | P.PNIM_ITS ---
Progress Note: A&P Assessment and Plan (1) New onset atrial fibrillation: Code(s): I48.91 - Unspecified atrial fibrillation <Armando Boggs VIKY Winters - Last Filed: 03/04/21 11:57> Status: Acute <Armando McneillVIKY minaya - Last Filed: 03/04/21 11:57> Assessment and Plan: * Controlled * Believed to be secondary to hyperthyroidism * Continue metoprolol 25 mg every 12 hours and Xarelto 03/04/2021 Continue Xarelto 15 mg Daily, Rate remains controlled, continue Methimazole <Armando Boggs VIKY Winters - Last Filed: 03/04/21 11:57> (2) Hyperthyroidism: Code(s): E05.90 - Thyrotoxicosis, unspecified without thyrotoxic crisis or storm <Armando Boggs VIKY Winters - Last Filed: 03/04/21 11:57> Status: Acute <Armando Boggs VIKY Winters - Last Filed: 03/04/21 11:57> Assessment and Plan: * Thyroid test consistent with hyperthyroidism * Continue tapazole * Previous provider spoke with patient ultrasound of the thyroid recommended FNA. she is going to follow up with her primary care physician 03/04/2021 continue Methimazole regimen, Pt to f/u with PCP after DC <Armando RudolphVIKY Zepeda - Last Filed: 03/04/21 11:57> (3) Hypertension: Code(s): I10 - Essential (primary) hypertension <Armando RudolphVIKY Zepeda - Last Filed: 03/04/21 11:57> Status: Acute <Armando Boggs VIKY Winters - Last Filed: 03/04/21 11:57> Assessment and Plan: * Blood pressure stable * Continue amlodipine 5 mg daily and lisinopril 40 mg daily <Armando RudolphVIKY Zepeda - Last Filed: 03/04/21 11:57> (4) Fall: Code(s): W19.XXXA - Unspecified fall, initial encounter <Armando KlaudiaVIKY Zepeda - Last Filed: 03/04/21 11:57> Status: Acute <Armando Rudolph. Vogt, PRICE CHECKER-C - Last Filed: 03/04/21 11:57> Assessment and Plan: * Continue PT OT <Armando Winters, PRICE CHECKER-C - Last Filed: 03/04/21 11:57> (5) Acute UTI: Code(s): N39.0 - Urinary tract infection, site not specified <Armando Winters, PRICE CHECKER-C - Last Filed: 03/04/21 11:57> Status: Acute <Armando Winters PRICE CHECKER-C - Last Filed: 03/04/21 11:57> Assessment and Plan: * Blood culture with the growth of E. coli * Continue Macrobid 03/04/2021 Pt has been treated <Armando Winters, PRICE CHECKER-C - Last Filed: 03/04/21 11:57> (6) Gait instability: Code(s): R26.81 - Unsteadiness on feet <Armando Winters, PRICE CHECKER-C - Last Filed: 03/04/21 11:57> Status: Acute <Armando Winters, PRICE CHECKER-C - Last Filed: 03/04/21 11:57> Assessment and Plan: * Continue PT OT <Armando Winters, PRICE CHECKER-C - Last Filed: 03/04/21 11:57> (7) Diabetes mellitus: Code(s): E11.9 - Type 2 diabetes mellitus without complications <Armando Winters, PRICE CHECKER-C - Last Filed: 03/04/21 11:57> Status: Acute <Armando Winters, PRICE CHECKER-C - Last Filed: 03/04/21 11:57> Assessment and Plan: * Last A1c 9 * Patient will follow up with her primary care physician to discuss use of oral medication * Continue home medication along with sliding scale hypoglycemic protocol and Accu-Cheks * Continue diabetic diet 03/04/2021 Glucose 150-220 <Armando Winters, PRICE CHECKER-C - Last Filed: 03/04/21 11:57> (8) Weakness: Code(s): R53.1 - Weakness <Armando Winters, PRICE CHECKER-C - Last Filed: 03/04/21 11:57> Status: Acute <Armando Flakita Winters, PRICE CHECKER-C - Last Filed: 03/04/21 11:57> Assessment and Plan: ? Exhibit tolerance during physical activity as evidenced by a normal fluctuation of vital signs during physical activity. ? Patient will be ab
--- NOTE | 2021-03-04 09:22 | PM.IMPN ---
Progress Note: A&P Assessment and Plan (1) New onset atrial fibrillation: Code(s): I48.91 - Unspecified atrial fibrillation <Armando Boggs VIKY Winters - Last Filed: 03/04/21 11:57> Status: Acute <Armando McneillVIKY minaya - Last Filed: 03/04/21 11:57> Assessment and Plan: Controlled Believed to be secondary to hyperthyroidism Continue metoprolol 25 mg every 12 hours and Xarelto 03/04/2021 Continue Xarelto 15 mg Daily, Rate remains controlled, continue Methimazole <Armando Boggs VIKY Winters - Last Filed: 03/04/21 11:57> (2) Hyperthyroidism: Code(s): E05.90 - Thyrotoxicosis, unspecified without thyrotoxic crisis or storm <Armando RudolphVIKY Zepeda - Last Filed: 03/04/21 11:57> Status: Acute <Armando RudolphVIKY Zepeda - Last Filed: 03/04/21 11:57> Assessment and Plan: Thyroid test consistent with hyperthyroidism Continue tapazole Previous provider spoke with patient ultrasound of the thyroid recommended FNA. she is going to follow up with her primary care physician 03/04/2021 continue Methimazole regimen, Pt to f/u with PCP after DC <Armando RudolphVIKY Zepeda - Last Filed: 03/04/21 11:57> (3) Hypertension: Code(s): I10 - Essential (primary) hypertension <Armando RudolphVIKY Zepeda - Last Filed: 03/04/21 11:57> Status: Acute <Armando Boggs VIKY Winters - Last Filed: 03/04/21 11:57> Assessment and Plan: Blood pressure stable Continue amlodipine 5 mg daily and lisinopril 40 mg daily <Armando RudolphVIKY Zepeda - Last Filed: 03/04/21 11:57> (4) Fall: Code(s): W19.XXXA - Unspecified fall, initial encounter <Armando KlaudiaVIKY Zepeda - Last Filed: 03/04/21 11:57> Status: Acute <Armando RudolphVIKY Zepeda - Last Filed: 03/04/21 11:57> Assessment and Plan: Continue PT OT <Armando Winters HELICOPTER REPAIRER-C - Last Filed: 03/04/21 11:57> (5) Acute UTI: Code(s): N39.0 - Urinary tract infection, site not specified <Armando Winters HELICOPTER REPAIRER-C - Last Filed: 03/04/21 11:57> Status: Acute <Armando Winters HELICOPTER REPAIRER-C - Last Filed: 03/04/21 11:57> Assessment and Plan: Blood culture with the growth of E. coli Continue Macrobid 03/04/2021 Pt has been treated <Armando Winters, HELICOPTER REPAIRER-C - Last Filed: 03/04/21 11:57> (6) Gait instability: Code(s): R26.81 - Unsteadiness on feet <Armando Winters, HELICOPTER REPAIRER-C - Last Filed: 03/04/21 11:57> Status: Acute <Armando Winters HELICOPTER REPAIRER-C - Last Filed: 03/04/21 11:57> Assessment and Plan: Continue PT OT <Armando Winters HELICOPTER REPAIRER-C - Last Filed: 03/04/21 11:57> (7) Diabetes mellitus: Code(s): E11.9 - Type 2 diabetes mellitus without complications <Armando Winters HELICOPTER REPAIRER-C - Last Filed: 03/04/21 11:57> Status: Acute <Armando Winters HELICOPTER REPAIRER-C - Last Filed: 03/04/21 11:57> Assessment and Plan: Last A1c 9 Patient will follow up with her primary care physician to discuss use of oral medication Continue home medication along with sliding scale hypoglycemic protocol and Accu-Cheks Continue diabetic diet 03/04/2021 Glucose 150-220 <Armando Winters, HELICOPTER REPAIRER-C - Last Filed: 03/04/21 11:57> (8) Weakness: Code(s): R53.1 - Weakness <Armando Winters, HELICOPTER REPAIRER-C - Last Filed: 03/04/21 11:57> Status: Acute <Armando Winters, HELICOPTER REPAIRER-C - Last Filed: 03/04/21 11:57> Assessment and Plan: ? Exhibit tolerance during physical activity as evidenced by a normal fluctuation of vital signs during physical activity. ? Patient will be ability to perform required activities of daily living. ? Provide appropriate nutrition for healing and strength. ? Use appropriate to prevent falls. ? Continue physical therapy/occupational therapy. 03/04/2021 Continue with PT/OT and doing good per PT and Pt. <Armando Winters, HELICOPTER REPAIRER-C - Last Filed: 03/04/21 11:57> Subjective Date/time seen: 03/04/21 09:22 Blaze Douglas
[2021-03-04 11:53] LABS: Glucose Point of Care 167 mg/dl (65-105)
[2021-03-04 16:00] VITALS: BP 195/56; PULSE 50; RESP 14; TEMP 36.4; O2SAT 99
[2021-03-04 16:55] LABS: Glucose Point of Care 158 mg/dl (65-105)
[2021-03-04] MEDS: RIVAROXABAN 10 MG TABLET 15 MG PO (17:28)
--- NOTE | 2021-03-04 19:00 | PC.NURSE ---
Pt assisted c use of walker back to bed p using BR. Pt has no c/o and is tolerating walking well in room and hallway per PT report. Pt has call [facility] at bedside.
[2021-03-04 20:35] VITALS: PULSE 55
--- NOTE | 2021-03-04 21:00 | PC.NURSE ---
Pt assisted from bed to BR and urinated moderate amt. Pt denies any c/o at this time. HS accucheck noted 288. Pt given warm blankets and call [facility] within reach.
[2021-03-04 21:08] LABS: Glucose Point of Care 288 mg/dl (65-105)
[2021-03-04 23:37] VITALS: BP 179/48; PULSE 53; RESP 16; TEMP 36.2; O2SAT 97
--- NOTE | 2021-03-05 01:32 | PC.NURSE ---
Inc of urine. Inc care given.
--- NOTE | 2021-03-05 03:34 | PC.NURSE ---
Up to BR using gait belt, walker, standby assist. Pt helped with legs back into bed. Pt did well with ambulatyion & getting out of bed & up from toilet.
--- NOTE | 2021-03-05 07:26 | PM.EVENT ---
Event Note Event Note Event Note: 03/05/2021 0726 hours BP elevating over the last few days. Increased Amlodipine adn will continue to monitor.
[2021-03-05 07:53] VITALS: BP 164/46; PULSE 52; RESP 14; TEMP 36.4; O2SAT 98
[2021-03-05] MEDS: methiMAzole 10 MG TAB 5 MG PO (08:51)
[2021-03-05] MEDS: DOCUSATE SODIUM 100 MG CAPSULE PO ×2 (08:51→20:29)
[2021-03-05] MEDS: amLODIPine BESYLATE 5 MG TABLET 10 MG PO (08:52)
[2021-03-05] MEDS: NITROFURANTOIN MONOHYD MACROCR 100 MG CAP PO ×2 (08:52→20:29)
[2021-03-05] MEDS: BENZONATATE 100 MG CAPSULE 200 MG PO ×2 (08:52→16:45)
[2021-03-05] MEDS: lisinopriL 20 MG TABLET 40 MG PO (08:53)
[2021-03-05] MEDS: ATORVASTATIN 40 MG TABLET PO (08:53)
[2021-03-05] MEDS: guaiFENesin 12 HR 600 MG TABCR PO ×2 (08:53→20:29)
[2021-03-05] MEDS: TIMOLOL MALEATE 0.5% OP SOLN 5 ML BOTTLE 1 DROP EACH EYE ×2 (08:54→16:45)
[2021-03-05 09:00] VITALS: PULSE 48
[2021-03-05 11:37] LABS: Glucose Point of Care 329 mg/dl (65-105)
[2021-03-05 15:32] VITALS: BP 153/51; PULSE 51; RESP 16; TEMP 36.6; O2SAT 100
[2021-03-05 16:38] LABS: Glucose Point of Care 132 mg/dl (65-105)
[2021-03-05] MEDS: RIVAROXABAN 10 MG TABLET 15 MG PO (16:46)
--- NOTE | 2021-03-05 16:50 | PC.NURSE ---
pt up to chair for dinner, took meds with no difficulties, legs up, offered restroom but pt declines at this time
--- NOTE | 2021-03-05 17:40 | PC.NURSE ---
pt requests to get back in bed, pt refuses restroom, hob up and feet elevated, rails up, call light in reach
[2021-03-05 20:30] VITALS: PULSE 48
[2021-03-05 20:34] LABS: Glucose Point of Care 219 mg/dl (65-105)
[2021-03-06] VITALS: BP 168/53; PULSE 57; RESP 20; TEMP 36.8; O2SAT 98
[2021-03-06 07:36] LABS: Glucose Point of Care 118 mg/dl (65-105)
[2021-03-06] MEDS: HYDROcodone/acetaminophen (*CRX) 5-325 MG TABLET 1 TAB PO (07:40)
--- NOTE | 2021-03-06 07:45 | PC.NURSE ---
Physical therapy reports patient had a small BM
[2021-03-06 08:00] VITALS: BP 177/51; PULSE 55; RESP 14; TEMP 36.3; O2SAT 100
[2021-03-06] MEDS: ONDANSETRON HCL ODT 4 MG TABLET PO (08:12)
[2021-03-06 09:00] VITALS: PULSE 55
--- NOTE | 2021-03-06 10:16 | PC.NURSE ---
Pt resting in chair at this time. States Nausea is better but not gone. RN holding pt AM meds due to nausea.
[2021-03-06 11:27] LABS: Glucose Point of Care 191 mg/dl (65-105)
[2021-03-06 15:30] VITALS: BP 168/54; PULSE 54; RESP 18; TEMP 36.7; O2SAT 99
--- NOTE | 2021-03-06 15:41 | PC.NURSE ---
round completed Blaze resting abed after P.T. Call light noted in reach. V/S WNL. Respirations even nonlabored.
[2021-03-06] MEDS: BENZONATATE 100 MG CAPSULE 200 MG PO (16:40)
[2021-03-06] MEDS: RIVAROXABAN 10 MG TABLET 15 MG PO (16:45)
[2021-03-06 16:59] LABS: Glucose Point of Care 237 mg/dl (65-105)
[2021-03-06] MEDS: TIMOLOL MALEATE 0.5% OP SOLN 5 ML BOTTLE 1 DROP EACH EYE (17:12)
--- NOTE | 2021-03-06 17:52 | PC.NURSE ---
Compl;eted round. Blaze resting abed TV on HOB elevated respirations even nonlabored. Call light in reach.
[2021-03-06] MEDS: guaiFENesin 12 HR 600 MG TABCR PO (20:30)
[2021-03-06] MEDS: DOCUSATE SODIUM 100 MG CAPSULE PO (20:30)
[2021-03-06 20:35] LABS: Glucose Point of Care 262 mg/dl (65-105)
[2021-03-06] MEDS: NITROFURANTOIN MONOHYD MACROCR 100 MG CAP PO (21:03)
[2021-03-06 21:04] VITALS: PULSE 50
[2021-03-07] VITALS: BP 107/47; PULSE 55; RESP 20; TEMP 35.9; O2SAT 97
[2021-03-07 08:00] VITALS: BP 164/57; PULSE 66; RESP 18; TEMP 36.1; O2SAT 96
[2021-03-07 08:06] LABS: Glucose Point of Care 228 mg/dl (65-105)
[2021-03-07] MEDS: methiMAzole 10 MG TAB 5 MG PO (09:09)
[2021-03-07] MEDS: DOCUSATE SODIUM 100 MG CAPSULE PO ×2 (09:09→20:46)
[2021-03-07 09:10] VITALS: PULSE 66
[2021-03-07] MEDS: METOPROLOL TARTRATE 25 MG TABLET PO ×2 (09:10→20:50)
[2021-03-07] MEDS: BENZONATATE 100 MG CAPSULE 200 MG PO ×3 (09:10→18:10)
[2021-03-07] MEDS: guaiFENesin 12 HR 600 MG TABCR PO ×2 (09:10→20:47)
[2021-03-07] MEDS: TIMOLOL MALEATE 0.5% OP SOLN 5 ML BOTTLE 1 DROP EACH EYE ×2 (09:10→18:15)
[2021-03-07] MEDS: ATORVASTATIN 40 MG TABLET PO (09:10)
[2021-03-07] MEDS: amLODIPine BESYLATE 5 MG TABLET 10 MG PO (09:10)
[2021-03-07] MEDS: NITROFURANTOIN MONOHYD MACROCR 100 MG CAP PO ×2 (09:10→20:48)
[2021-03-07] MEDS: lisinopriL 20 MG TABLET 40 MG PO (09:10)
[2021-03-07] MEDS: INSULIN DETEMIR 100 UNITS/ML 20 UNITS SUB-Q (09:11)
[2021-03-07 12:04] LABS: Glucose Point of Care 239 mg/dl (65-105)
[2021-03-07 16:00] VITALS: BP 168/54; PULSE 52; RESP 16; TEMP 36.4; O2SAT 99
[2021-03-07 17:08] LABS: Glucose Point of Care 60 mg/dl (65-105)
[2021-03-07] MEDS: RIVAROXABAN 10 MG TABLET 15 MG PO (18:11)
[2021-03-07] MEDS: ACETAMINOPHEN 325 MG TABLET 650 MG PO (20:46)
[2021-03-07 20:50] VITALS: PULSE 58
[2021-03-07 21:08] LABS: Glucose Point of Care 196 mg/dl (65-105)
[2021-03-08] VITALS: BP 167/57; PULSE 58; RESP 16; TEMP 36.5; O2SAT 95
[2021-03-08 07:41] LABS: Glucose Point of Care 143 mg/dl (65-105)
[2021-03-08 08:00] VITALS: BP 177/54; PULSE 48; RESP 20; TEMP 36.2; O2SAT 97
[2021-03-08] MEDS: guaiFENesin 12 HR 600 MG TABCR PO ×2 (08:49→21:08)
[2021-03-08] MEDS: amLODIPine BESYLATE 5 MG TABLET 10 MG PO (08:49)
[2021-03-08] MEDS: lisinopriL 20 MG TABLET 40 MG PO (08:49)
[2021-03-08] MEDS: DOCUSATE SODIUM 100 MG CAPSULE PO ×3 (08:49→21:15)
[2021-03-08 08:50] VITALS: PULSE 48
[2021-03-08] MEDS: ATORVASTATIN 40 MG TABLET PO (08:51)
[2021-03-08] MEDS: BENZONATATE 100 MG CAPSULE 200 MG PO ×3 (08:51→17:09)
[2021-03-08] MEDS: NITROFURANTOIN MONOHYD MACROCR 100 MG CAP PO (08:51)
[2021-03-08] MEDS: TIMOLOL MALEATE 0.5% OP SOLN 5 ML BOTTLE 1 DROP EACH EYE ×2 (08:53→17:10)
[2021-03-08] MEDS: methiMAzole 10 MG TAB 5 MG PO (08:53)
[2021-03-08] MEDS: INSULIN DETEMIR 100 UNITS/ML 20 UNITS SUB-Q (08:55)
[2021-03-08 11:43] LABS: Glucose Point of Care 191 mg/dl (65-105)
[2021-03-08 16:00] VITALS: BP 166/55; PULSE 56; RESP 20; TEMP 36; O2SAT 99
[2021-03-08 16:06] LABS: Glucose Point of Care 157 mg/dl (65-105)
[2021-03-08] MEDS: RIVAROXABAN 10 MG TABLET 15 MG PO (17:08)
[2021-03-08] MEDS: ACETAMINOPHEN 325 MG TABLET 650 MG PO (21:08)
[2021-03-08 21:15] VITALS: PULSE 54
[2021-03-09] VITALS: BP 129/49; PULSE 54; RESP 20; TEMP 35.6; O2SAT 98
[2021-03-09 02:53] LABS: Glucose Point of Care 210 mg/dl (65-105)
[2021-03-09 07:30] VITALS: BP 161/51; PULSE 56; RESP 18; TEMP 36; O2SAT 97
[2021-03-09 09:09] VITALS: PULSE 56
[2021-03-09] MEDS: METOPROLOL TARTRATE 25 MG TABLET PO ×2 (09:09→21:59)
[2021-03-09] MEDS: ATORVASTATIN 40 MG TABLET PO (09:09)
[2021-03-09] MEDS: BENZONATATE 100 MG CAPSULE 200 MG PO ×2 (09:09→16:47)
[2021-03-09] MEDS: lisinopriL 20 MG TABLET 40 MG PO (09:09)
[2021-03-09] MEDS: guaiFENesin 12 HR 600 MG TABCR PO ×2 (09:09→21:59)
[2021-03-09] MEDS: amLODIPine BESYLATE 5 MG TABLET 10 MG PO (09:09)
[2021-03-09] MEDS: TIMOLOL MALEATE 0.5% OP SOLN 5 ML BOTTLE 1 DROP EACH EYE ×2 (09:10→16:48)
[2021-03-09] MEDS: methiMAzole 10 MG TAB 5 MG PO (09:10)
[2021-03-09] MEDS: INSULIN DETEMIR 100 UNITS/ML 20 UNITS SUB-Q (09:18)
[2021-03-09 09:20] LABS: Glucose Point of Care 252 mg/dl (65-105)
[2021-03-09 12:05] LABS: Glucose Point of Care 173 mg/dl (65-105)
[2021-03-09 16:30] VITALS: BP 166/59; PULSE 93; RESP 18; TEMP 36.5; O2SAT 100
[2021-03-09] MEDS: RIVAROXABAN 10 MG TABLET 15 MG PO (16:47)
[2021-03-09 17:15] LABS: Glucose Point of Care 175 mg/dl (65-105)
--- NOTE | 2021-03-09 19:13 | PC.NURSE ---
Completed bedside change of shift report. Patient has been up for every meal, and is ambulating well with the walker. She is able to do her own pericare, and has been continent all day. She has had no complaints of pain. Patient is resting comfortably in bed, with no signs of pain or discomfort. Patient stated she is not in pain at this time, and does not need anything.
[2021-03-09 21:59] VITALS: PULSE 56
[2021-03-09] MEDS: DOCUSATE SODIUM 100 MG CAPSULE PO (21:59)
--- NOTE | 2021-03-09 22:00 | PC.NURSE ---
Patient rounding completed. Patient is sleeping comfortably in bed, with no signs of pain or discomfort. Patient's heart rate is 45. Patient tends to have a low heart rate.
[2021-03-09 22:08] LABS: Glucose Point of Care 241 mg/dl (65-105)
[2021-03-10] VITALS: BP 145/53; PULSE 45; RESP 20; TEMP 36.6; O2SAT 98
--- NOTE | 2021-03-10 02:00 | PC.NURSE ---
Patient rounding is completed. Patient needed to use the toilet. She was able to swing her legs off the bed independently, used her walker to walk to the toilet and back, and was able to swing her legs back up in bed independently.
--- NOTE | 2021-03-10 06:00 | PC.NURSE ---
Patient rounding completed. Patient asked for a warm blanket. She is not having any pain, and did not need anything else. Patient slept well last night. Patient is resting comfortably in bed, with no signs of pain or discomfort.
[2021-03-10 08:00] VITALS: BP 137/41; PULSE 53; RESP 18; TEMP 36.3; O2SAT 100
[2021-03-10 08:43] LABS: Hematocrit 34.9 % (35.0-42.0); Hemoglobin 10.9 g/dL (11.7-13.8); Immature Platelet Fraction Pct 1.9 % (1.0-7.0); Mean Corpuscular HGB Conc 31.2 g/dL (32.0-36.0); Mean Corpuscular Hemoglobin 26.1 pg (27.0-31.0); Mean Corpuscular Volume 83.7 fL (78.0-102.0); Mean Platelet Volume 9.8 fl (9.2-11.8); Platelet Count Result 558 K/mm3 (150-420); Red Blood Count 4.17 M/mm3 (4.20-5.40); Red Cell Distribution Width 14.3 % (11.6-14.4)
[2021-03-10 09:03] LABS: NT Pro B Type Natriuretic Pept 396 pg/mL (0-450)
[2021-03-10] MEDS: lisinopriL 20 MG TABLET 40 MG PO (09:10)
[2021-03-10] MEDS: guaiFENesin 12 HR 600 MG TABCR PO (09:10)
[2021-03-10] MEDS: BENZONATATE 100 MG CAPSULE 200 MG PO ×3 (09:10→16:50)
[2021-03-10] MEDS: amLODIPine BESYLATE 5 MG TABLET 10 MG PO (09:10)
[2021-03-10] MEDS: DOCUSATE SODIUM 100 MG CAPSULE PO (09:10)
[2021-03-10 09:11] VITALS: PULSE 53
[2021-03-10] MEDS: TIMOLOL MALEATE 0.5% OP SOLN 5 ML BOTTLE 1 DROP EACH EYE ×2 (09:11→16:51)
[2021-03-10] MEDS: methiMAzole 10 MG TAB 5 MG PO (09:11)
[2021-03-10] MEDS: ATORVASTATIN 40 MG TABLET PO (09:11)
[2021-03-10] MEDS: METOPROLOL TARTRATE 25 MG TABLET PO (09:11)
[2021-03-10] MEDS: INSULIN DETEMIR 100 UNITS/ML 20 UNITS SUB-Q (09:13)
[2021-03-10 09:21] LABS: Glucose Point of Care 271 mg/dl (65-105)
--- NOTE | 2021-03-10 10:46 | P.DS_ITS ---
DS: Admitting Diagnosis Discharge Date 03/10/2021 <FREDERIC Farfan - Last Filed: 03/10/21 11:15> Admitting Diagnosis weakness/ debility <FREDERIC Farfan - Last Filed: 03/10/21 11:15> DS: Discharge Diagnosis Discharge Diagnosis (1) New onset atrial fibrillation: Code(s): I48.91 - Unspecified atrial fibrillation <FREDERIC Farfan - Last Filed: 03/10/21 11:15> Status: Acute <FREDERIC Farfan - Last Filed: 03/10/21 11:15> Assessment and Plan: * Controlled * Believed to be secondary to hyperthyroidism * Continue metoprolol 25 mg every 12 hours and Xarelto 03/04/2021 Continue Xarelto 15 mg Daily, Rate remains controlled, continue Methimazole <FREDERIC Farfan - Last Filed: 03/10/21 11:15> (2) Hyperthyroidism: Code(s): E05.90 - Thyrotoxicosis, unspecified without thyrotoxic crisis or storm <FREDERIC Farfan - Last Filed: 03/10/21 11:15> Status: Acute <FREDERIC Farfan - Last Filed: 03/10/21 11:15> Assessment and Plan: * Thyroid test consistent with hyperthyroidism * Continue tapazole * Previous provider spoke with patient ultrasound of the thyroid recommended FNA. she is going to follow up with her primary care physician 03/04/2021 continue Methimazole regimen, Pt to f/u with PCP after DC <FREDERIC Farfan - Last Filed: 03/10/21 11:15> (3) Hypertension: Code(s): I10 - Essential (primary) hypertension <FREDERIC Farfan - Last Filed: 03/10/21 11:15> Status: Acute <FREDERIC Farfan - Last Filed: 03/10/21 11:15> Assessment and Plan: * Blood pressure stable * Continue amlodipine and lisinopril daily <FREDERIC Farfan - Last Filed: 03/10/21 11:15> (4) Fall: Code(s): W19.XXXA - Unspecified fall, initial encounter <Nikki Douglas MANAGER OPERATIONS-C - Last Filed: 03/10/21 11:15> Status: Acute <Nikki Douglas MANAGER OPERATIONS-C - Last Filed: 03/10/21 11:15> Assessment and Plan: * completedPT OT <Nikki Douglas MANAGER OPERATIONS-C - Last Filed: 03/10/21 11:15> (5) Acute UTI: Code(s): N39.0 - Urinary tract infection, site not specified <Nikki Douglas MANAGER OPERATIONS-C - Last Filed: 03/10/21 11:15> Status: Acute <Nikki Douglas MANAGER OPERATIONS-C - Last Filed: 03/10/21 11:15> Assessment and Plan: * Blood culture with the growth of E. coli * Continue Macrobid 03/04/2021 Pt has been treated <Nikki Douglas MANAGER OPERATIONS-C - Last Filed: 03/10/21 11:15> (6) Gait instability: Code(s): R26.81 - Unsteadiness on feet <Nikki Douglas MANAGER OPERATIONS-C - Last Filed: 03/10/21 11:15> Status: Acute <Nikki Douglas MANAGER OPERATIONS-C - Last Filed: 03/10/21 11:15> Assessment and Plan: * Continue PT OT <Nikki Douglas MANAGER OPERATIONS-C - Last Filed: 03/10/21 11:15> (7) Diabetes mellitus: Code(s): E11.9 - Type 2 diabetes mellitus without complications <Nikki Douglas MANAGER OPERATIONS-C - Last Filed: 03/10/21 11:15> Status: Acute <Nikki Douglas MANAGER OPERATIONS-C - Last Filed: 03/10/21 11:15> Assessment and Plan: * Last A1c 9 * Patient will follow up with her primary care physician to discuss use of oral medication * Continue home medication along with sliding scale hypoglycemic protocol and Accu-Cheks * Continue diabetic diet follow-up with primary care physician on discharge <Nikki Douglas MANAGER OPERATIONS-C - Last Filed: 03/10/21 11:15> (8) Weakness: Code(s): R53.1 - Weakness <KISHAN Farfan-C - Last Filed: 03/10/21 11:15> Status:
--- NOTE | 2021-03-10 10:46 | PM.DS ---
DS: Admitting Diagnosis Discharge Date 03/10/2021 <Nikki JjFREDERIC Haynes - Last Filed: 03/10/21 11:15> Admitting Diagnosis weakness/ debility <Nikki JjFREDERIC Haynes - Last Filed: 03/10/21 11:15> DS: Discharge Diagnosis Discharge Diagnosis (1) New onset atrial fibrillation: Code(s): I48.91 - Unspecified atrial fibrillation <FREDERIC Farfan - Last Filed: 03/10/21 11:15> Status: Acute <Nikki JjFREDERIC Haynes - Last Filed: 03/10/21 11:15> Assessment and Plan: Controlled Believed to be secondary to hyperthyroidism Continue metoprolol 25 mg every 12 hours and Xarelto 03/04/2021 Continue Xarelto 15 mg Daily, Rate remains controlled, continue Methimazole <FREDERIC Farfan - Last Filed: 03/10/21 11:15> (2) Hyperthyroidism: Code(s): E05.90 - Thyrotoxicosis, unspecified without thyrotoxic crisis or storm <Nikki JjFREDERIC Haynes - Last Filed: 03/10/21 11:15> Status: Acute <FREDERIC Farfan - Last Filed: 03/10/21 11:15> Assessment and Plan: Thyroid test consistent with hyperthyroidism Continue tapazole Previous provider spoke with patient ultrasound of the thyroid recommended FNA. she is going to follow up with her primary care physician 03/04/2021 continue Methimazole regimen, Pt to f/u with PCP after DC <FREDERIC Farfan - Last Filed: 03/10/21 11:15> (3) Hypertension: Code(s): I10 - Essential (primary) hypertension <FREDERIC Farfan - Last Filed: 03/10/21 11:15> Status: Acute <FREDERIC Farfan - Last Filed: 03/10/21 11:15> Assessment and Plan: Blood pressure stable Continue amlodipine and lisinopril daily <FREDERIC Farfan - Last Filed: 03/10/21 11:15> (4) Fall: Code(s): W19.XXXA - Unspecified fall, initial encounter <Nikki Douglas PHONE SPECIALIST-C - Last Filed: 03/10/21 11:15> Status: Acute <Nikki Douglas PHONE SPECIALIST-C - Last Filed: 03/10/21 11:15> Assessment and Plan: completedPT OT <Nikki Douglas PHONE SPECIALIST-C - Last Filed: 03/10/21 11:15> (5) Acute UTI: Code(s): N39.0 - Urinary tract infection, site not specified <Nikki Douglas PHONE SPECIALIST-C - Last Filed: 03/10/21 11:15> Status: Acute <Nikki Kinsey Misael PHONE SPECIALIST-C - Last Filed: 03/10/21 11:15> Assessment and Plan: Blood culture with the growth of E. coli Continue Macrobid 03/04/2021 Pt has been treated <Trevinphuc JjCEDRIC HaynesP-C - Last Filed: 03/10/21 11:15> (6) Gait instability: Code(s): R26.81 - Unsteadiness on feet <Nikki Douglas PHONE SPECIALIST-C - Last Filed: 03/10/21 11:15> Status: Acute <Nikki GardnerKristi Misael PHONE SPECIALIST-C - Last Filed: 03/10/21 11:15> Assessment and Plan: Continue PT OT <Nikki Douglas PHONE SPECIALIST-C - Last Filed: 03/10/21 11:15> (7) Diabetes mellitus: Code(s): E11.9 - Type 2 diabetes mellitus without complications <Trevinphuc JjKristi Douglas PHONE SPECIALIST-C - Last Filed: 03/10/21 11:15> Status: Acute <Nikki GardnerKristi Misael PHONE SPECIALIST-C - Last Filed: 03/10/21 11:15> Assessment and Plan: Last A1c 9 Patient will follow up with her primary care physician to discuss use of oral medication Continue home medication along with sliding scale hypoglycemic protocol and Accu-Cheks Continue diabetic diet follow-up with primary care physician on discharge <Nikki Douglas PHONE SPECIALIST-C - Last Filed: 03/10/21 11:15> (8) Weakness: Code(s): R53.1 - Weakness <FREDERIC Farfan - Last Filed: 03/10/21 11:15> Status: Acute <FREDERIC Farfan - Last Filed: 03/10/21 11:15> Assessment and Plan: ? Exhibit tolerance during physical activity as evidenced by a normal fluctuation of vital signs during physical activity. ? Patient will be ability to perform required activities of daily living. ? Provide appropriate nutrition for healing and strength. ? Use appropria
[2021-03-10 12:03] LABS: Glucose Point of Care 190 mg/dl (65-105)
[2021-03-10] MEDS: RIVAROXABAN 10 MG TABLET 15 MG PO (16:50)
--- NOTE | 2021-03-10 17:45 | PC.NURSE ---
Patient up in chair for supper. Fed self, ate 75%. Daughter and friend here to pick patient up. Patient transferred into car without difficulty. Patient alert and oriented. Denies pain, SOB, weakness. Able to make needs known.
[2021-03-10 20:55] LABS: Glucose Point of Care 89 mg/dl (65-105)
--- NOTE | 2021-03-17 11:34 | PC.NURSE ---
Pt states she received and understood her discharge instructions. Pt has no other comments.
[2021-03-20 10:52] LABS: Glucose Point of Care 160 mg/dl (65-105)
[2021-03-20 10:52] LABS: Glucose Point of Care 251 mg/dl (65-105)
== END 2021-03-10 17:30 | disposition home health service (06) | DRG 948 ==
PROVIDERS: Nurse Practitioner; Nurse Practitioner Family; Admitting Provider Emergency Medicine; PCP Internal Medicine; Visit Provider Emergency Medicine
DX: R53.1 Weakness (principal); N39.0 Urinary tract infection, site not specified; I48.91 Unspecified atrial fibrillation; I10 Essential (primary) hypertension; E11.9 Type 2 diabetes mellitus without complications; E05.90 Thyrotoxicosis, unspecified without thyrotoxic crisis or storm; R26.81 Unsteadiness on feet; Z79.01 Long term (current) use of anticoagulants
CPT/HCPCS: 36415; 80053; 82948; 83880; 85025; 85027; 85055; 97110; 97161; 97165; 97530; 97535; A9270; J1815

== ENCOUNTER 2021-08-10 22:34 | Emergency (ER) | payer MEDICARE, SELFPAY ==
--- NOTE | ~2021-08-10 | XR_ITS ---
EXAMINATION: XR hip RT 2V w AP pelvis, XR femur RT min 2V EXAM DATE: 08/10/2021 23:37 INDICATION: Initial encounter following injury, with pain of the right hip, femur. TECHNIQUE: Right hip frontal, 'frog leg' projections for interpretation. Frontal projection pelvis. Right femur frontal and lateral projections of the proximal aspect, frontal and lateral projections o f the lower aspect for review. There is no prior study for comparison. FINDINGS: There are no acute right hip, femur fractures or dislocations identified. There is no subc utaneous gas. Mild scattered arteriosclerotic disease. There are no radiopaque foreign bodies. The re is moderate symmetric bilateral hip primary osteoarthritis. IMPRESSION: Moderate symmetric hip osteoarthritis. No fracture. Reviewed, dictated and finalized at location G. IMPRESSION: Moderate symmetric hip osteoarthritis. No fracture.
[2021-08-10 22:14] VITALS: BP 210/66; PULSE 66; RESP 15; TEMP 36.4; O2SAT 100
[2021-08-10 23:01] VITALS: BP 178/62; PULSE 60; RESP 13; O2SAT 100
--- NOTE | 2021-08-10 23:37 | ED.FALL ---
HPI - Fall General Chief Complaint: Fall Stated Complaint: Right leg and hip pain s/p fall 4 days ago Time Seen by Provider: 08/10/21 22:55 Source: patient Mode of arrival: wheelchair Limitations: no limitations History of Present Illness HPI Narrative: Patient is an 86-year-old female complaining of left hip and left thigh pain, moderate, dull, worse with movement after a ground-level fall 4 days ago. Patient states that her legs gave out that is why she fell, which she states is nothing new and that is why she uses a wheelchair and a walker to help her ambulate. Patient denies any head, neck, chest, back or any other extremity pain/injury. Related Data Home Medications Medication Instructions Recorded Confirmed atorvastatin 40 mg PO DAILY 02/19/21 02/26/21 lisinopril 40 mg PO DAILY 02/19/21 02/26/21 timolol maleate 1 drp EACH EYE BID 02/19/21 02/26/21 Allergies Allergy/AdvReac Type Severity Reaction Status Date / Time propoxyphene Allergy Mild Unknown Verified 08/10/21 23:03 Sulfa (Sulfonamide AdvReac Mild VOMITING Verified 08/10/21 23:03 Antibiotics) Review of Systems Review of Systems: All systems reviewed & are unremarkable except as noted in HPI and below Constitutional: Constitutional: Denies body ache(s), Denies chills, Denies excessive sweating, Denies fatigue, Denies fever(s), Denies headache(s), Denies lethargy, Denies malaise, Denies weakness and Denies weight loss Eyes: Eyes: Denies blurry vision, Denies change in vision and Denies loss of vision ENT: Denies dizziness, Denies ear discharge, Denies headache(s), Denies lip swelling, Denies epistaxis, Denies nasal congestion, Denies neck pain, Denies throat swelling and Denies tongue swelling Cardiovascular: Cardiovascular: Denies chest pain, Denies chest pain at rest, Denies chest pain with activity, Denies diaphoresis, Denies rapid heart rate, Denies edema, Denies irregular heart rhythm, Denies lightheadedness, Denies palpitations, Denies dyspnea and Denies dyspnea on exertion Respiratory: Respiratory: Denies chest congestion, Denies cough, Denies hemoptysis, Denies dyspnea and Denies dyspnea on exertion Gastrointestinal: Gastrointestinal: Denies abdominal pain, Denies melena, Denies hematochezia, Denies diarrhea, Denies nausea, Denies vomiting and Denies hematemesis Musculoskeletal: Musculoskeletal: Denies neck pain and Denies numbness Neurologic: Denies Abnormal speech present, Denies abnormal gait, Denies confusion, Denies dizziness, Denies headache(s), Denies focal weakness, Denies loss of vision, Denies numbness, Denies Other visual disturbances, Denies Sensory deficit (Neuro) and Denies weakness Psychiatric: Psychiatric: Denies confusion, Denies depression, Denies auditory hallucinations, Denies homicidal ideation and Denies suicidal ideation Endocrine: Endocrine: Denies cold intolerance, Denies excessive sweating, Denies fatigue, Denies heat intolerance and Denies palpitations Hematologic/Lymphatic: Hematologic/Lymphatic: Denies easy bleeding and Denies easy bruising Allergic/Immunologic: Allergic/Immunologic: Denies lip swelling, Denies throat swelling and Denies tongue swelling PMFSH Past Medical History Medical History Diabetes mellitus Hypertension Family History Family History Sibling Acute myocardial infarction Family history of diabetes mellitus in first degree relative Family history of cardiovascular disease Diabetes mellitus Hypertension Social History Social History Smoking status: Never smoker Second hand tobacco smoke exposure: No Alcohol intake: never Substance use: never Spiritual care concerns: No Exam Const: General: cooperative, healthy appearing, comfortable, no acute distress, well developed, alert and awake; No confusion Orientatio
[2021-08-11] MEDS: HYDROcodone/acetaminophen (*CRX) 5-325 MG TABLET 1 TAB PO (00:15)
[2021-08-11 02:13] VITALS: BP 170/60; PULSE 55; RESP 16; O2SAT 98
[2021-08-11 02:33] LABS: Add Urine Microscopic? YES; Appearance Urine Clear (Clear); Bacteria Urine Trace /hpf; Bilirubin Urine Negative (Negative); Blood Urine 1+ (Negative); Color Urine Straw (Yellow); Glucose Urine UA Negative (Negative); Ketones Urine Negative (Negative); Leukocyte Esterase Ur Negative LEU/UL (Negative); Mucus Urine Rare /lpf; Nitrate Urine Negative (Negative); Protein Urine 2+ mg/dL (Negative); RBC Urine 0-2 /hpf (0-2); Specific Grav Ur 1.006 (1.001-1.035); Urobilinogen Urine Negative mg/dL (<2.0); WBC Urine 0-3 /hpf
[2021-08-11 03:23] VITALS: BP 161/77; PULSE 54; RESP 16; O2SAT 100
== END 2021-08-11 03:52 | disposition home or self-care (01) ==
PROVIDERS: Emergency Provider Emergency Medicine; PCP Internal Medicine
DX: S76.011A Strain of muscle, fascia and tendon of right hip, initial encounter (principal); E11.9 Type 2 diabetes mellitus without complications; I10 Essential (primary) hypertension; M16.11 Unilateral primary osteoarthritis, right hip; Z79.4 Long term (current) use of insulin; Z79.01 Long term (current) use of anticoagulants; W18.39XA Other fall on same level, initial encounter
CPT/HCPCS: 51701; 73502; 73552; 81001; 99284; A9270

== ENCOUNTER 2024-02-15 11:44 | Observation (INO) | payer MEDICARE, SELFPAY ==
[2024-02-15] VITALS (13 sets, daily range): BP systolic 123–212; BP diastolic 57–72; PULSE 47–77; RESP 13–19; TEMP 36.4–36.7; O2SAT 97–100; BMI 21.4
--- NOTE | ~2024-02-15 | CT_ITS ---
CT brain wo con Ordering provider: Roger Marrero MD History: 88 years Female with . weakness . Comparison: March 21, 2021 Technique: CT of the head without contrast. Radiation reduction technique utilized.The dose-length product was 605.33 mGy-cm FINDINGS: BRAIN PARENCHYMA AND CSF SPACES: Mild leukoaraiosis and diffuse cortical atrophy. Mild atheromatous d isease. No midline shift, mass effect or hemorrhage. The brain parenchyma and CSF spaces are otherwi se normal. Empty sella turcica. VISUALIZED PARANASAL SINUSES: Well aerated. MASTOIDS: Minimal effusion the right mastoid air cells with sclerotic changes. BONES: The bones appear intact. SOFT TISSUES: Visualized nasopharynx is normal. Superficial soft tissues are normal. IMPRESSION: No acute intracranial findings. Reviewed, dictated and finalized at location A.
--- NOTE | ~2024-02-15 | CT_ITS ---
CT chest abdomen pelvis w con Ordering provider: Roger Marrero MD History: 88 years Female with . generalized weakness . Comparison: None. Technique: CT chest with IV contrast. CT abdomen and pelvis CT abdomen and pelvis with IV and with or al contrast. Radiation reduction technique utilized. The dose-length product was 661.03 mGy-cm. 100 mL Omnipaque 350 was given IV. FINDINGS: CHEST: --VISUALIZED THORACIC INLET: Large right thyroid mass is seen measuring 4.6 x 5.5 cm. Multiple hypode nsities are also seen in the left lobe of the thyroid. --MEDIASTINUM: Aorta/coronary arteries: Mild atheromatous disease. Aberrant right subclavian artery. Heart/other: The heart is slightly0 enlarged. Lymph nodes: No mediastinal or hilar adenopathy. --LUNGS: No pulmonary nodules or masses. No infiltrates or effusions. No pneumothorax. --MUSCULOSKELETAL: Soft tissues: The superficial soft tissues are normal. Bones: Age appropriate degenerative changes of the spine. No suspicious bony lytic or sclerotic lesio ns. ABDOMEN/PELVIS: --MUSCULOSKELETAL: Bones: Age appropriate degenerative changes of the spine. No suspicious bony lytic or sclerotic lesio ns. Superficial soft tissues: Bilateral fat containing inguinal hernias. The superficial soft tissues are normal. --UPPER ABDOMINAL ORGANS: Liver: Normal. Gallbladder: With no definite stones. Spleen: Normal. Stomach/duodenum: Normal. Pancreas: Normal. Adrenals: Normal. Kidneys: Left kidney stone in the left mid pole measuring 8 mm.. No hydronephrotic changes. 5 mm ston e in the left kidney lower pole.. Scarring also seen in the left kidney midpole. --PELVIC ORGANS: The bladder slightly thickened wall. No bladder stones. --BOWEL AND MESENTERY: Colon: Mild diverticulosis without diverticulitis sigmoid colon. No evidence of appendicitis. Small Bowel: Normal. No obstruction. Peritoneum/mesentery: No free air or free fluid. No mesenteric lymphadenopathy. --RETROPERITONEUM: Mild atheromatous disease of the abdominal aorta. No retroperitoneal lymphadenop athy. IMPRESSION: CHEST: 1. Large right thyroid mass. Further evaluation advised. Multiple left thyroid nodules. 2. No pulmonary embolism or acute cardiopulmonary pathology. 3. Aberrant right subclavian artery. ABDOMEN/PELVIS: Gallbladder sludge. No evidence of appendicitis, diverticulitis or intestinal obstruction. Left kidney stones in the mid and lower pole. No hydronephrotic changes. Bilateral inguinal fat containing hernia. Reviewed, dictated and finalized at location A.
--- NOTE | ~2024-02-15 | XR_ITS ---
XR chest 1V portable Ordering provider: Roger Marrero MD History: 88 years Female with . Weakness . Comparison: None. FINDINGS: MEDIASTINUM: The cardiac silhouette is not enlarged. Prominent paz. LUNGS: No infiltrates, effusions or pneumothorax. OTHER: No free air under the diaphragm. Degenerative changes of the spine. IMPRESSION: No acute cardiopulmonary pathology. Reviewed, dictated and finalized at location A.
--- NOTE | 2024-02-15 11:53 | ECG_ITS ---
Test Date: 2024-02-15 11:49:35 Measurements Intervals [place] Rate: 52 P: 96 [place]: 183 QRS: -47 QRSD: 116 T: 80 QT: 459 QTc: 431 Interpretive Statements SINUS BRADYCARDIA LEFT AXIS DEVIATION INCOMPLETE LEFT BUNDLE BRANCH BLOCK INFERIOR INFARCT, AGE INDETERMINATE ST-T WAVE ABNORMALITY IN HIGH LATERAL LEADS- CONSIDER ISCHEMIA BASELINE ARTIFACT- I, II, III, AVR, AVL, AVF ABNORMAL ECG No previous ECG available for comparison Electronically Signed On 02-15-2024 11:56:27 CDT by Royer Stapleton D.O.
[2024-02-15 12:27] LABS: Base Excess ABG 4.2 mEq/l (+/-2.0); Fractional Inspired Oxygen 21 %; HCO3 ABG 28.2 mEq/l (22.0-26.0); Oxygen Content ABG 15.7 %vol (16.0-22.0); Oxygen Saturation ABG 97.2 % (95.0-100.0); Oxyhemoglobin 96.7 % THb (90.0-100.0); PCO2 ABG 39.6 mmHg (35.0-45.0); PO2 ABG 88.3 mmHg (80.0-100.0); Total Hemoglobin 11.5 g/dL (12.0-18.0)
[2024-02-15 12:28] LABS: Device ROOM AIR; Site Drawn RIGHT BRACHIAL
--- NOTE | 2024-02-15 12:33 | ED.GENADULT ---
HPI - General Adult General Chief complaint: Weakness Stated complaint: weakness History of Present Illness HPI narrative: This is an 88-year-old female with a history of hypertension diabetes presenting for weakness. Patient states she woke up this morning feeling more weak than usual. It is a global weakness. She has no other complaints. She denies any falls. She denies fevers chills nausea vomiting diarrhea hematochezia or melena, chest pain difficulty breathing or abdominal pain or urinary symptoms. Related Data Home Medications Medication Instructions Recorded Confirmed atorvastatin 10 mg tablet 40 mg PO DAILY 02/19/21 02/26/21 lisinopril 40 mg tablet 40 mg PO DAILY 02/19/21 02/26/21 timolol maleate 0.5 % eye drops 1 drp EACH EYE BID 02/19/21 02/26/21 Allergies Allergy/AdvReac Type Severity Reaction Status Date / Time propoxyphene Allergy Mild Unknown Verified 08/10/21 23:03 Sulfa (Sulfonamide AdvReac Mild VOMITING Verified 08/10/21 23:03 Antibiotics) [facility] Past Medical History Medical History Diabetes mellitus Hypertension Family History Family History Sibling Acute myocardial infarction Family history of diabetes mellitus in first degree relative Family history of cardiovascular disease Diabetes mellitus Hypertension Social History Social History Smoking status: Never smoker Second hand tobacco smoke exposure: No Alcohol intake: never Substance use: never Spiritual care concerns: No Exam Narrative: APPEARANCE: No apparent distress. Head: atraumatic. EYES: EOMI, NOSE: Atraumatic NECK: Trachea midline RESPIRATORY: No increased rate of breathing clear to auscultation CARDIOVASCULAR: RRR, no edema ABDOMINAL: Non-distended soft nontender no guarding or rebound MUSCULOSKELETAl: No obvious deformities NEURO: Alert. Moving for 4 extremities to command but weak globally, cranial nerves 2-12 intact SKIN:: Warm, dry. Normal color PSYCHIATRIC: Normal affect Course Vital Signs Vital signs: Vital Signs Temperature 97.5 F L 02/15/24 11:42 Pulse Rate 53 L 02/15/24 11:42 Respiratory Rate 15 02/15/24 11:42 Blood Pressure 212/62 H 02/15/24 11:42 Pulse Oximetry 100 02/15/24 11:42 Oxygen Delivery Room Air 02/15/24 11:42 Temperature 97.5 F L 02/15/24 11:42 Pulse Rate 76 02/15/24 15:30 Respiratory Rate 16 02/15/24 15:30 Blood Pressure 159/61 H 02/15/24 15:30 Pulse Oximetry 100 02/15/24 15:30 Oxygen Delivery Room Air 02/15/24 11:42 Medical Decision Making [facility] Narrative Medical decision making narrative: -Course: This is an 88-year-old female presenting with 1 day of generalized weakness. She has no other symptoms which to guide a workup. Blood pressure is very elevated although she has not taken her daily medications. Given her home doses of lisinopril and amlodipine. His blood pressure is still elevated given a dose of hydralazine. BP improved. Her physical exam is unremarkable other than being globally weak. Full sepsis workup has been ordered. Urine with 6-10 white blood cells and +1 leuk esterase. Patient started on ceftriaxone. The rest of her workup including CT head, chest abdomen pelvis with laboratory studies without a causative finding. Patient is elderly and debilitated. She lives alone. She will be placed in observation overnight. PT OT develop recommended. -DDX includes but is not limited to: Sepsis UTI dehydration pneumonia kidney failure hypertensive emergency -Co-morbidities complicating care: Hypertension, diabetes -Independent interpretation of studies:White count 6.6. Hemoglobin 10.9 ABG unremarkable metabolic panel within acceptable limits lactic 1.3 troponin undetectable. BNP within acceptable limits urinalysis with 6-10 white blood cells
[2024-02-15 12:43] LABS: Basophils Percent Auto 0.3 % (0.2-1.2); Eosinophils Percent Auto 0.2 % (0-4.4); Hematocrit 34.8 % (37.0-47.0); Hemoglobin 10.9 g/dL (12.0-15.0); Immature Granulocyte Absolute 0.02 K/mm3 (0.00-0.031); Immature Granulocyte Percent A 0.3 % (0-0.5); Lymphocytes Absolute Auto 1.76 K/mm3 (0.9-3.2); Lymphocytes Percent Auto 26.8 % (18.3-44.2); Mean Corpuscular HGB Conc 31.3 g/dl (32-36); Mean Corpuscular Hemoglobin 26.5 pg (26-34); Mean Corpuscular Volume 84.7 fl (80-100); Mean Platelet Volume 10.2 fl (7.4-10.4); Monocytes Absolute Auto 0.4 K/mm3 (0.1-0.6); Monocytes Percent Auto 6.4 % (2.6-8.5); Neutrophils Absolute Auto 4.3 K/mm3 (1.3-6.7); Platelet Count Result 322 k/mm3 (150-375); Red Blood Count 4.11 M/mm3 (4.2-5.4); Red Cell Distribution Width 14.6 % (11.5-14.5); White Blood Count 6.6 K/mm3 (4.5-10.0)
[2024-02-15 12:45] LABS: Glucose Point of Care 182 mg/dl (65-105)
[2024-02-15 12:53] LABS: Lactic Acid Reflex 1.3 mmol/L (0.7-2.0)
[2024-02-15 12:54] LABS: Lipase 84 U/L (23-300); Magnesium 1.9 mg/dL (1.6-2.3); Phosphorus 3.7 mg/dL (2.5-4.5)
[2024-02-15 12:55] LABS: Alanine Aminotransferase 17 U/L (6-35); Albumin Level 3.8 g/dL (3.5-5.1); Alkaline Phosphatase 75 U/L (38-126); Anion Gap 5 mmol/L (4-12); Aspartate Amino Transferase 29 U/L (14-36); Bilirubin,Total 0.5 mg/dL (0.2-1.3); Blood Urea Nitrogen 19 mg/dL (7-17); Calcium 9.2 mg/dL (8.4-10.2); Carbon Dioxide 31 mmol/L (22-30); Chloride 99 mmol/L (98-107); Estimated CRCL calculation 40 ml/min; Estimated Glomerular Filt Rate > 60; Glucose 209 mg/dL (65-110); Sodium 135 mmol/L (137-145)
[2024-02-15 12:59] LABS: INR 1.3
[2024-02-15 13:01] LABS: Partial Thromboplastin Time 46.3 Seconds (22.3-36.8)
[2024-02-15] MEDS: lisinopriL 20 MG TABLET 40 MG PO (13:04)
[2024-02-15] MEDS: amLODIPine BESYLATE 10 MG TABLET PO (13:05)
[2024-02-15 13:06] LABS: NT Pro B Type Natriuretic Pept 537 pg/mL (19.9-100); Troponin I < 0.012 ng/mL (0.000-0.034)
[2024-02-15 13:11] LABS: Add Urine Microscopic? YES; Appearance Urine Clear (Clear); Bacteria Urine None Seen /hpf; Bilirubin Urine Negative (Negative); Blood Urine Negative (Negative); Color Urine Yellow (Yellow); Glucose Urine UA Trace mg/dL (Negative); Ketones Urine Negative (Negative); Leukocyte Esterase Ur 1+ LEU/UL (Negative); Nitrate Urine Negative (Negative); Non Pathogenic Casts 0-2; Protein Urine 2+ mg/dL (Negative); RBC Urine 0-2 /hpf (0-2); Specific Grav Ur 1.016 (1.001-1.035); Squamous Epithelial Cell Urine None Seen /hpf (Few); Urobilinogen Urine 0.2 mg/dL (<2.0); pH Urine 6.5 (5.0-9.0)
[2024-02-15 13:20] LABS: Influenza A QL RT-PCR Negative (Negative); Influenza B QL RT-PCR Negative (Negative); RSV RNA, RT-PCR Negative (Negative); SARS-CoV-2 RNA PCR Negative (Negative)
--- NOTE | 2024-02-15 14:30 | ECG_ITS ---
Test Date: 2024-02-15 14:34:37 Measurements Intervals Avery Rate: 54 P: 95 PA: 176 QRS: -48 QRSD: 118 T: 70 QT: 444 QTc: 423 Interpretive Statements SINUS BRADYCARDIA WITH OCCASIONAL SUPRAVENTRICULAR PREMATURE COMPLEXES LEFT AXIS DEVIATION INCOMPLETE LEFT BUNDLE BRANCH BLOCK BORDERLINE R WAVE PROGRESSION, ANTERIOR LEADS INFERIOR INFARCT, AGE INDETERMINATE ST-T WAVE ABNORMALITY IN HIGH LATERAL LEADS- CONSIDER ISCHEMIA BASELINE ARTIFACT- I, II, III, AVR, AVL, AVF, V1-V6 ABNORMAL ECG Compared to ECG 02/15/2024 11:49:35 NO SIGNIFICANT CHANGE Electronically Signed On 02-15-2024 14:52:29 CDT by Royer Stapleton D.O.
--- NOTE | 2024-02-15 14:34 | PC.NURSE ---
This RN attempted to call pts daughter Cherelle (number in contact list) per pt request, no answer x 2. Pt updated.
[2024-02-15] MEDS: hydrALAZINE HCL 20 MG/ML VIAL 10 MG IV PUSH (14:49)
[2024-02-15 15:11] LABS: Troponin I < 0.012 ng/mL (0.000-0.034)
[2024-02-15] MEDS: SODIUM CHLORIDE 0.9% IV 1,000 ML 999 ML IV CONT (16:24)
--- NOTE | 2024-02-15 17:20 | PC.NURSE ---
Called dietary and ordered a dinner tray for pt at this time.
--- NOTE | 2024-02-15 18:56 | PM.IMHP ---
H&P: HPI History of Present Illness Date/Time: 02/15/24 18:56 Chief Complaint: Weakness Narrative: 88 y/o F presents here with generalized weakness with PMH of DM, anemia, HLD, dementia, and HTN. The patient presents here from home via EMS for further evaluation of generalized weakness. The patient reports onset of weakness that started today around 10-10:30 a.m. when she got up out of bed, starting walking. Reporting her right upper extremity feels tight and numbness. Weakness/tightness on the right also effecting the right lower extremity. Denies dysarthria, headache, dizziness, dysuria, chest pain, N/V/D, abdominal pain, fever, or chills. Family reports that she chronically has urinary frequency at night, no change from baseline at present. Reports 1 fall approximately 1 month ago, the patient was trying to do up her shoes and she just rolled over . Patient is poor/difficult historian. Initial VS at presentation: 97.5? F, HR 53, RR 15,212/62, and 100% on RA. ED workup showed: No leukocytosis, hemoglobin 10.9 (at baseline), INR 1.3, sodium 135, creatinine 0.8 and GFR >60, glucose 209, initial troponin negative, BNP 537, normal TSH. UA suggestive of UTI. CXR showed no acute cardiopulmonary pathology. Head CT showed no acute intracranial findings. CT of the chest/abdomen/pelvis showed gallbladder sludge, no evidence of appendicitis/diverticulitis/intentional instruction, left kidney stones without hydronephrotic changes, and bilateral inguinal fat containing hernia. Review of Systems Review of Systems: All systems reviewed & are unremarkable except as noted in HPI and below PMFSH Past Medical History Medical History Anemia Anxiety and depression Dementia Diabetes mellitus Glaucoma HLD (hyperlipidemia) Hypertension Hyperthyroidism Surgical History Surgical History History of hysterectomy Family History Family History Sibling Acute myocardial infarction Family history of diabetes mellitus in first degree relative Family history of cardiovascular disease Diabetes mellitus Hypertension Social History Social History Smoking status: Never smoker Second hand tobacco smoke exposure: No Alcohol intake: never Substance use: never Do You Feel Safe in your Home?: Yes Lack of Transportation: No Lack of Food: Never True Current Housing: I Do Not Have Housing Concerned About Future Housing: No Difficulty Paying Gas/Electric Bills: No Difficulty Paying for Meds: No Currently Unemployed: No Education: Don't Know Difficulty w/ Childcare or Family Care: No Spiritual care concerns: No Meds Home Medications and Allergies Home Medications Medication Instructions Recorded Confirmed Type atorvastatin 10 mg tablet 40 mg PO DIRECTED 02/19/21 02/15/24 History lisinopril 40 mg tablet 40 mg PO DAILY 02/19/21 02/15/24 History timolol maleate 0.5 % eye drops 1 drp EACH EYE BID 02/19/21 02/15/24 History insulin detemir U-100 100 unit/mL 20 unit (0.2 mL) subcut QAM 30 03/10/21 02/15/24 Rx subcutaneous solution (Levemir days #6 mL U-100 Insulin) methimazole 10 mg tablet (Tapazole) 5 mg PO QAM 30 days #30 tabs 03/10/21 02/15/24 Rx rivaroxaban 15 mg tablet (Xarelto) 15 mg PO DAILY@1700 #30 tabs 03/10/21 02/15/24 Rx Allergies Allergy/AdvReac Type Severity Reaction Status Date / Time propoxyphene Allergy Mild Unknown Verified 08/10/21 23:03 Sulfa (Sulfonamide AdvReac Mild VOMITING Verified 08/10/21 23:03 Antibiotics) Vital Signs Vital Signs - 24 hr 02/15/24 11:42 02/15/24 11:42 02/15/24 11:56 Temperature 97.5 F L Pulse Rate 53 L 56 L Respiratory Rate 15 14 Blood Pressure 212/62 H Pulse Oximetry 100 100 100 Oxygen Delivery Room Air Room Air
[2024-02-15] MEDS: RIVAROXABAN 15 MG TABLET PO (20:31)
[2024-02-15] MEDS: TIMOLOL MALEATE 0.5% OP SOLN 5 ML BOTTLE 1 DROP EACH EYE (20:31)
[2024-02-15] MEDS: ATORVASTATIN 40 MG TABLET PO (20:32)
[2024-02-15 20:48] LABS: Glucose Point of Care 178 mg/dl (65-105)
[2024-02-15] MEDS: ACETAMINOPHEN 500 MG TABLET 1000 MG PO (22:59)
--- NOTE | 2024-02-16 | ECHO_ITS ---
Patient Info Name: Blaze Douglas Age: 88 years : 1935 Gender: Female Ht: 65 in Wt: 115 lbs BSA: 1.54 m2 HR: 52 bpm BP: 154 / 44 mmHg Heart Rhythm: Indeterminant Technical Quality: Fair Exam Date: 02/16/2024 9:09 AM Exam Location: Echo Lab Patient Status: Outpatient Admit Date: 02/15/2024 Staff Ordering Physician: Frida Valencia APRN Minister Assistant: Anne Phan RDCS Attending Provider: Isabelle Cardenas APRN Referring Physician: Annie PANDEY; Exam Type: CA echo dop color flow w con Study Info Indications - weakness Complete two-dimensional, color flow and Doppler transthoracic echocardiogram is performed with contrast to opacify the left ventricle and to improve the deliniation of the left ventricle endocardial borders. Summary 1. The left ventricle is normal size. There is normal left ventricular systolic function with LVEF calculated at to be 55-60%. 2. The right ventricle size and systolic function is normal. 3. The aortic valve is trileaflet and opens well. 4. There is no aortic regurgitation. 5. Mitral valve leaflets appear normal and there was no mitral regurgitation. Left Ventricle The left ventricle is normal size. There is normal left ventricular systolic function with LVEF calculated at to be 55-60%. Right Ventricle The right ventricle size and systolic function is normal. Aortic Valve The aortic valve is trileaflet and opens well. There is no aortic regurgitation. Pulmonic Valve The pulmonic valve is poorly visualized. There does not appear to be any pulmonic valve regurgitation. Mitral Valve Mitral valve leaflets appear normal and there was no mitral regurgitation. Tricuspid Valve Tricuspid valve appears normal and there is trivial tricuspid regurgitation. There is insufficient TR jet to estimate the PASP. Pericardium/Pleural There were not good subcostal views however no pericardial effusion was noted on the PLAX view. Inferior Vena Cava Inferior vena cava is not well visualized. Aorta The aortic root measured at the level of the sinus of Valsalva is normal diameter. Left Ventricular Outflow Tract Name Value Normal LVOT 2D LVOT Diameter 1.60 cm LVOT Doppler LVOT Peak Gradient 6 mmHg LVOT Mean Gradient 4 mmHg LVOT VTI 31.91 cm LVOT VTI/AV VTI Ratio 0.86 LVOT Stroke Volume 64.26 ml LVOT CO 3.87 l/min LVOT CI 2.51 L/min/m2 Pulmonic Valve Name Value Normal PV Doppler PV Peak Gradient 8 mmHg Mitral Valve Name Value Normal MV Doppler MV Decel [place]
[2024-02-16 05:33] VITALS: BP 152/44; PULSE 53; RESP 16; TEMP 36.6; O2SAT 100
[2024-02-16 05:55] LABS: Basophils Percent Auto 0.4 % (0.2-1.2); Eosinophils Absolute Auto 0.1 K/mm3 (0-0.3); Eosinophils Percent Auto 0.7 % (0-4.4); Hemoglobin 10.1 g/dL (12.0-15.0); Immature Granulocyte Absolute 0.02 K/mm3 (0.00-0.031); Immature Granulocyte Percent A 0.3 % (0-0.5); Lymphocytes Absolute Auto 2.96 K/mm3 (0.9-3.2); Lymphocytes Percent Auto 44.3 % (18.3-44.2); Mean Corpuscular HGB Conc 31.6 g/dl (32-36); Mean Corpuscular Hemoglobin 26.4 pg (26-34); Mean Corpuscular Volume 83.8 fl (80-100); Mean Platelet Volume 10.4 fl (7.4-10.4); Monocytes Absolute Auto 0.5 K/mm3 (0.1-0.6); Monocytes Percent Auto 7.6 % (2.6-8.5); Neutrophils Absolute Auto 3.1 K/mm3 (1.3-6.7); Neutrophils Percent Auto 46.7 % (45.5-73.1); Platelet Count Result 295 k/mm3 (150-375); Red Blood Count 3.82 M/mm3 (4.2-5.4); Red Cell Distribution Width 14.4 % (11.5-14.5); White Blood Count 6.7 K/mm3 (4.5-10.0)
[2024-02-16 06:05] LABS: Anion Gap 4 mmol/L (4-12); Blood Urea Nitrogen 15 mg/dL (7-17); Calcium 8.9 mg/dL (8.4-10.2); Carbon Dioxide 29 mmol/L (22-30); Chloride 103 mmol/L (98-107); Estimated CRCL calculation 40 ml/min; Estimated Glomerular Filt Rate > 60; Glucose 104 mg/dL (65-110); Potassium 3.7 mmol/L (3.4-5.0); Sodium 136 mmol/L (137-145)
[2024-02-16 06:06] LABS: Hemoglobin A1C 7.8 % (<5.7)
[2024-02-16 08:03] LABS: Glucose Point of Care 122 mg/dl (65-105)
[2024-02-16 08:10] VITALS: BP 146/49; PULSE 63; RESP 18; TEMP 36.6; O2SAT 100
[2024-02-16] MEDS: lisinopriL 20 MG TABLET 40 MG PO (09:55)
[2024-02-16] MEDS: methiMAzole 5 MG TAB PO (09:56)
[2024-02-16] MEDS: INSULIN GLARGINE (*BKC) 100 UNITS/ML 20 UNITS SUB-Q (09:56)
[2024-02-16] MEDS: TIMOLOL MALEATE 0.5% OP SOLN 5 ML BOTTLE 1 DROP EACH EYE ×2 (09:56→16:36)
[2024-02-16 10:12] VITALS: BMI 21.4
[2024-02-16] MEDS: PERFLUTREN LIPID MICROSPHERES 1.5 ML VIAL DILUTED TO 10 ML TOTAL VOLUME IV PUSH (10:33)
--- NOTE | 2024-02-16 10:33 | IVDEFINITY ---
Prior to administration of IV Definity the patient was educated on the risks and benefits of the imaging enhancing agent including potential adverse side effects. The patient verbalized understanding. Allergies were verified. No exclusion criteria were identified and at least one of the following inclusion criteria were met: 1) physician request, 2) patient technically difficult to image (per the [place] [employer]chocardi[employer] guidelines of two or more segments not discernable within the apical view), or 3) questionable left ventricular function. ?
--- NOTE | 2024-02-16 10:34 | P.PNIM_ITS ---
Progress Note: A&P Assessment and Plan (1) Weakness: Code(s): R53.1 - Weakness Status: Acute Assessment and Plan: * viral PCR negative * Possibly secondary to UTI or thyroid * CXR showed no acute cardiopulmonary pathology * history of hyperthyroidism on Tapazole * TSH WNL * BNP 537, echo ordered * PT/OT for evaluation (2) Acute UTI: Code(s): N39.0 - Urinary tract infection, site not specified Status: Suspected Assessment and Plan: * UA: 2+ protein, trace glucose, 1+ leuks, 6-10 WBC, no epithelial cells, no bacteria. * UA Culture * previous micro reviewed, E coli /coag-negative staph coccus/Enterococcus pansensitive in 2020 * started on Ceftriaxone on 02/14 (3) Thyroid mass: Code(s): E07.9 - Disorder of thyroid, unspecified Status: Acute Assessment and Plan: * HX hyperthyroidism * US in 2020 showed thyroid mass recommended biopsy never followed up * CT showing Mass and multiple nodules * US guided biopsy ordered * Holding Shanikarelto * May need to consult oncology pending results (4) Diabetes mellitus: Qualifiers: Diabetes mellitus type: type 2 Diabetes mellitus ferry terminal agent insulin use: with ferry terminal agent use Diabetes mellitus complication status: without complication Qualified Code(s): E11.9 - Type 2 diabetes mellitus without complications; Z79.4 - intermodal dispatcher (current) use of insulin Code(s): E11.9 - Type 2 diabetes mellitus without complications Status: Chronic Assessment and Plan: * Accu-Cheks a.c. HS * sliding scale insulin * Resume home long-acting insulin * hold oral diabetic medications * Hemoglobin A1c goal less than 7 * Diabetic diet * consult to dietitian * Optimize Braydon inhibitors and statins. * Watch for hypoglycemia/hypoglycemic protocol ordered (5) Hypertension: Qualifiers: Hypertension type: primary hypertension Qualified Code(s): I10 - Essential (primary) hypertension Code(s): I10 - Essential (primary) hypertension Status: Chronic Assessment and Plan: * Hypertensive systolic's >200 POA * Was given medications in the ED * D/C lisinopril * added Amlodipine and hydralazine * BP per unit will adjust as needed Plan Code status: Full code per patient DVT prophylaxis: Xarelto HX AFIB Stress ulcer prophylaxis: Protonix 40 daily PT/OT notes: PT/OT pending recs Disposition: patient was admitted to the medical unit with generalized weakness, UTI and thyroid mass will continue treatment for UTI pending culture and is scheduled for ultrasound biopsy of thyroid mass. PT/OT pending recs for discharge plan. Time Spent With Patient Time with patient: 15 - 25 minutes Subjective Date/time seen: 02/16/24 10:34 Interval history: Admission: Medical Chart 88 y/o F presents here with generalized weakness with PMH of DM, anemia, HLD, dementia, and HTN. The patient presents here from home via EMS for further evaluation of gene ralized weakness. The patient reports onset of
--- NOTE | 2024-02-16 10:34 | PM.IMPN ---
Progress Note: A&P Assessment and Plan (1) Weakness: Code(s): R53.1 - Weakness Status: Acute Assessment and Plan: viral PCR negative Possibly secondary to UTI or thyroid CXR showed no acute cardiopulmonary pathology history of hyperthyroidism on Tapazole TSH WNL BNP 537, echo ordered PT/OT for evaluation (2) Acute UTI: Code(s): N39.0 - Urinary tract infection, site not specified Status: Suspected Assessment and Plan: UA: 2+ protein, trace glucose, 1+ leuks, 6-10 WBC, no epithelial cells, no bacteria. UA Culture previous micro reviewed, E coli /coag-negative staph coccus/Enterococcus pansensitive in 2020 started on Ceftriaxone on 02/14 (3) Thyroid mass: Code(s): E07.9 - Disorder of thyroid, unspecified Status: Acute Assessment and Plan: HX hyperthyroidism US in 2020 showed thyroid mass recommended biopsy never followed up CT showing Mass and multiple nodules US guided biopsy ordered Holding Xarelto May need to consult oncology pending results (4) Diabetes mellitus: Qualifiers: Diabetes mellitus type: type 2 Diabetes mellitus long term care social worker insulin use: with detention use Diabetes mellitus complication status: without complication Qualified Code(s): E11.9 - Type 2 diabetes mellitus without complications; Z79.4 - roasterman (current) use of insulin Code(s): E11.9 - Type 2 diabetes mellitus without complications Status: Chronic Assessment and Plan: Accu-Cheks a.c. HS sliding scale insulin Resume home long-acting insulin hold oral diabetic medications Hemoglobin A1c goal less than 7 Diabetic diet consult to dietitian Optimize Braydon inhibitors and statins. Watch for hypoglycemia/hypoglycemic protocol ordered (5) Hypertension: Qualifiers: Hypertension type: primary hypertension Qualified Code(s): I10 - Essential (primary) hypertension Code(s): I10 - Essential (primary) hypertension Status: Chronic Assessment and Plan: Hypertensive systolic's >200 POA Was given medications in the ED D/C lisinopril added Amlodipine and hydralazine BP per unit will adjust as needed Plan Code status: Full code per patient DVT prophylaxis: Xarelto HX AFIB Stress ulcer prophylaxis: Protonix 40 daily PT/OT notes: PT/OT pending recs Disposition: patient was admitted to the medical unit with generalized weakness, UTI and thyroid mass will continue treatment for UTI pending culture and is scheduled for ultrasound biopsy of thyroid mass. PT/OT pending recs for discharge plan. Time Spent With Patient Time with patient: 15 - 25 minutes Subjective Date/time seen: 02/16/24 10:34 Interval history: Admission: Medical Chart 88 y/o F presents here with generalized weakness with PMH of DM, anemia, HLD, dementia, and HTN. The patient presents here from home via EMS for further evaluation of generalized weakness. The patient reports onset of weakness that started today around 10-10:30 a.m. when she got up out of bed, starting walking. Reporting her right upper extremity feels tight and numbness. Weakness/tightness on the right also effecting the right lower extremity. Denies dysarthria, headache, dizziness, dysuria, chest pain, N/V/D, abdominal pain, fever, or chills. Family reports that she chronically has urinary frequency at night, no change from baseline at present. Reports 1 fall approximately 1 month ago, the patient was trying to do up her shoes and she just rolled over . Patient is poor/difficult historian. 02/16/2024: Assumed Care Patient reports overall weakness and just not feeling well for the last 4 days. Appears to have a UTI based on UA. Patient was found to have a thyroid mass and nodules present with history of hyperthyroidism. Patient had previous ultrasound in 2020 at which time it was recommended she get a biopsy however patient
[2024-02-16 11:36] LABS: INR 1.6; Prothrombin Time 19.4 Seconds (11.1-14.7)
[2024-02-16 12:02] LABS: Glucose Point of Care 352 mg/dl (65-105)
[2024-02-16] MEDS: INSULIN ASPART (*BKC) 100 UNITS/ML SUB-Q (12:18)
[2024-02-16] MEDS: hydrALAZINE HCL 25 MG TABLET PO ×2 (12:20→16:35)
[2024-02-16 14:00] VITALS: BP 156/46; PULSE 59; RESP 16; TEMP 36.4; O2SAT 100
[2024-02-16] MEDS: ATORVASTATIN 40 MG TABLET PO (16:35)
[2024-02-16 17:31] LABS: Glucose Point of Care 132 mg/dl (65-105)
[2024-02-16 21:07] VITALS: BP 166/58; PULSE 64; RESP 18; TEMP 36.8; O2SAT 100
[2024-02-16 21:52] LABS: Glucose Point of Care 181 mg/dl (65-105)
[2024-02-16 22:13] VITALS: BP 166/58; PULSE 64; RESP 18; TEMP 36.8; O2SAT 100
[2024-02-17 05:55] LABS: Basophils Percent Auto 0.6 % (0.2-1.2); Eosinophils Absolute Auto 0.1 K/mm3 (0-0.3); Eosinophils Percent Auto 0.7 % (0-4.4); Hematocrit 33.8 % (37.0-47.0); Hemoglobin 10.3 g/dL (12.0-15.0); Immature Granulocyte Absolute 0.01 K/mm3 (0.00-0.031); Immature Granulocyte Percent A 0.1 % (0-0.5); Lymphocytes Absolute Auto 2.69 K/mm3 (0.9-3.2); Lymphocytes Percent Auto 40.3 % (18.3-44.2); Mean Corpuscular HGB Conc 30.5 g/dl (32-36); Mean Corpuscular Hemoglobin 26.2 pg (26-34); Mean Platelet Volume 10.3 fl (7.4-10.4); Monocytes Absolute Auto 0.6 K/mm3 (0.1-0.6); Monocytes Percent Auto 9.1 % (2.6-8.5); Neutrophils Absolute Auto 3.3 K/mm3 (1.3-6.7); Neutrophils Percent Auto 49.2 % (45.5-73.1); Platelet Count Result 288 k/mm3 (150-375); Red Blood Count 3.93 M/mm3 (4.2-5.4); Red Cell Distribution Width 14.3 % (11.5-14.5); White Blood Count 6.7 K/mm3 (4.5-10.0)
[2024-02-17 06:00] VITALS: BP 157/60; PULSE 80; RESP 18; TEMP 36.9; O2SAT 98
[2024-02-17 06:06] LABS: Alanine Aminotransferase 16 U/L (6-35); Albumin Level 3.3 g/dL (3.5-5.1); Alkaline Phosphatase 73 U/L (38-126); Anion Gap 8 mmol/L (4-12); Aspartate Amino Transferase 29 U/L (14-36); Bilirubin,Total 0.5 mg/dL (0.2-1.3); Blood Urea Nitrogen 16 mg/dL (7-17); Calcium 8.6 mg/dL (8.4-10.2); Carbon Dioxide 24 mmol/L (22-30); Chloride 103 mmol/L (98-107); Estimated CRCL calculation 45 ml/min; Estimated Glomerular Filt Rate > 60; Glucose 158 mg/dL (65-110); Potassium 3.8 mmol/L (3.4-5.0); Sodium 135 mmol/L (137-145)
[2024-02-17 07:48] LABS: Glucose Point of Care 150 mg/dl (65-105)
[2024-02-17] MEDS: INSULIN GLARGINE (*BKC) 100 UNITS/ML 20 UNITS SUB-Q (08:44)
[2024-02-17] MEDS: TIMOLOL MALEATE 0.5% OP SOLN 5 ML BOTTLE 1 DROP EACH EYE (08:45)
[2024-02-17] MEDS: amLODIPine BESYLATE 10 MG TABLET PO (08:45)
[2024-02-17] MEDS: methiMAzole 5 MG TAB PO (08:45)
[2024-02-17] MEDS: hydrALAZINE HCL 25 MG TABLET 50 MG PO ×2 (08:52→12:15)
[2024-02-17 11:35] LABS: Glucose Point of Care 243 mg/dl (65-105)
[2024-02-17] MEDS: INSULIN ASPART (*BKC) 100 UNITS/ML SUB-Q (12:15)
--- NOTE | 2024-02-17 13:34 | PM.DS ---
DS: Admitting Diagnosis Discharge Date 02/17/2024 Admitting Diagnosis Generalized weakness/thyroid mass DS: Discharge Diagnosis Discharge Diagnosis (1) Weakness: Code(s): R53.1 - Weakness Status: Acute (2) Acute UTI: Code(s): N39.0 - Urinary tract infection, site not specified Status: Suspected (3) Thyroid mass: Code(s): E07.9 - Disorder of thyroid, unspecified Status: Acute (4) Diabetes mellitus: Qualifiers: Diabetes mellitus type: type 2 Diabetes mellitus bed bug exterminator insulin use: with mcc use Diabetes mellitus complication status: without complication Qualified Code(s): E11.9 - Type 2 diabetes mellitus without complications; Z79.4 - USP (current) use of insulin Code(s): E11.9 - Type 2 diabetes mellitus without complications Status: Chronic (5) Hypertension: Qualifiers: Hypertension type: primary hypertension Qualified Code(s): I10 - Essential (primary) hypertension Code(s): I10 - Essential (primary) hypertension Status: Chronic Plan Disposition: Patient discharged to home with home health will have US biopsy of thyroid outpatient DS: Summary Hospital Course Reason for hospitalization: Generalized weakness/Thyroid Mass Hospital Course: Patient was an 88-year-old female who presented to the emergency department with complaints of generalized weakness initially patient was admitted for possible urinary tract infection and CTA scan showed thyroid mass and multiple nodules, TSH WNL. Blood cultures remained negative in normal WBC. urine resulted back negative and antibiotics were discontinued. Attempted to have biopsy done on thyroid however days patient is staffing will need to be done outpatient. Spoke with patient's primary care physician Dr. Maradiaga regarding the need for the thyroid biopsy and he has agreed to follow up with patient order was provided at discharge. patient on day of discharge reported she felt back to baseline and would generalized weakness had resolved. patient did have physical and occupational therapy and agreed to home health services to continue. Patient was discharged home on home health. Status at Discharge Functional status at discharge: uses cane/walker Overall status at discharge: patient is back to baseline Time Spent with Patient Time attestation: Total time spent providing and/or coordinating discharge services: Exam Narrative: Physical Exam: GENERAL: Pleasant quiet Alert and oriented x 3 but poor historian female in No acute distress. HEENT: Moist mucous membranes. LUNGS: Clear to auscultation bilaterally. No accessory muscle use. CARDIOVASCULAR: Regular rate and rhythm. No murmur. . S1-S2 ABDOMEN: Soft, non tenderness and non-distended. No palpable masses. EXTREMITIES: No edema. Non-tender SKIN: No rashes or lesions. Skin warm, dry. NEUROLOGIC: No focal neurological deficits. PSYCHIATRIC: Appropriate mood and affect. DS: Data Data Completed and Pending Labs on day of discharge: Labs from last 24 hours 02/17/24 02/17/24 02/17/24 11:32 07:44 05:30 WBC 6.7 RBC 3.93 L Hgb 10.3 L Hct 33.8 L MCV 86.0 MCH 26.2 MCHC 30.5 L RDW 14.3 Plt Count 288 MPV 10.3 Immature Gran % (Auto) 0.1 Neut % (Auto) 49.2 Lymph % (Auto) 40.3 Winkler % (Auto) 9.1 H Eos % (Auto) 0.7 Baso % (Auto) 0.6 Lymph # (Auto) 2.69 Winkler # (Auto) 0.6 Eos # (Auto) 0.1 Baso # (Auto) 0.0 Abs Immat Gran (auto) 0.01 Absolute Neuts (auto) 3.3 Absolute Nucleated RBC 0.000 Nucleated RBC % 0.0 Sodium 135 L Potassium 3.8 Chloride 103 Carbon Dioxide 24 Anion Gap 8 BUN 16 Creatinine 0.70 Estim Creat Clear Calc 45 Estimated GFR > 60 Glucose 158 H POC Capillary Glucose 243 H 150 H Calcium 8.6 Total Bilirubin 0.5 AST 29 ALT 16 Alkaline Phosphatase
[2024-02-17 14:00] VITALS: BP 139/50; PULSE 69; RESP 16; TEMP 36; O2SAT 100
== END 2024-02-17 16:25 | disposition home health service (06) ==
LOC: ANHED 16:50 → ANH2MED 18:09 → ANH3MEDSUR 02-20 07:46
PROVIDERS: Student in an Organized Health Care Education/Training Program; Admitting Provider Internal Medicine; Emergency Provider Emergency Medicine; PCP Internal Medicine; Visit Provider Nurse Practitioner Family
DX: N39.0 Urinary tract infection, site not specified (principal); E07.9 Disorder of thyroid, unspecified; R53.1 Weakness; I10 Essential (primary) hypertension; E11.9 Type 2 diabetes mellitus without complications; E78.5 Hyperlipidemia, unspecified; F03.90 Unspecified dementia, unspecified severity, without behavioral disturbance, psychotic disturbance, mood disturbance, and anxiety; D64.9 Anemia, unspecified; F41.8 Other specified anxiety disorders; H40.9 Unspecified glaucoma; Z79.01 Long term (current) use of anticoagulants; Z79.4 Long term (current) use of insulin; Z20.822 Contact with and (suspected) exposure to COVID-19
CPT/HCPCS: 36415; 36600; 70450; 71045; 71260; 74177; 80048; 80053; 81001; 82805; 82810; 82948; 83036; 83605; 83690; 83735; 83880; 84100; 84443; 84484; 85018; 85025; 85610; 85730; 87040; 87086; 87088; 87637; 93005; 96361; 96365; 96375; 97161; 97165; 97530; 99285; A9270; C8929; G0378; J0360; J0696; J1815; J7030; Q9957; Q9967